=== PATIENT | male | born 1950 | race Caucasian/White ===

== ENCOUNTER 2017-12-14 14:14 | Inpatient (IN) | payer BC, MEDICARE ==
[~2017-12-14 14:14] MED LIST: ISOVUE-370 76%-LOCM 1 ML ONE
[2017-12-14] MEDS ORDERED: fentaNYL Citrate/PF 2,000 MCG in Sodium Chloride 0.9% 60 ML IV SCH (14:35)
[2017-12-14 14:36] LABS: #Eosinphils 0.1 thou/uL (0.0-0.7); #Lymphocytes 0.9 thou/uL (1.20-3.40); #Monocytes 0.9 thou/uL (0.11-0.59); #Neutrophils 12.7 thou/uL (1.40-6.50); %Basophils 0.2 % (0.0-1.0); %Monocytes 6.3 % (0.0-10.0); %Neutrophils 86.6 % (42.0-75.0); Hemoglobin 17.3 g/dL (14.0-18.0); Mean Corpuscular HGB CONC 30.2 g/dL (32.0-36.0); Mean Corpuscular Hemoglobin 27.4 pg (27.0-31.0); Mean Corpuscular Volume 90.7 fL (78.0-98.0); Mean Platelet Volume 7.6 fL (7.4-10.4); Platelet Count 296 thou/uL (130-400); RBC Distribution Width 14.4 % (11.5-14.5); Red Blood Cell (RBC) Count 6.33 mill/uL (4.70-6.10); White Blood Cell (WBC) Count 14.7 thou/uL (4.8-10.8)
[2017-12-14] MEDS ORDERED: fentaNYL Citrate/PF 2,000 MCG in Sodium Chloride 0.9% 60 ML EPIDURAL ONE (14:37)
[2017-12-14 14:41] LABS: Bilirubin Small (Negative); Blood, Urine Negative (Negative); Clarity CLOUDY (Clear); Glucose, Urine (Dipstick) Negative (Negative); Leukocyte Negative (Negative); Nitrite Negative (Negative); Protein, Urine (Dipstick) 100 mg/dL (Neg-Trace); Specific Gravity, Urine 1.024 (1.002-1.036)
[2017-12-14 14:43] LABS: Bacteria/HPF None Seen HPF (None Seen); RBC/HPF 0-3 HPF (0-3); Squamous Epithelial 0-3 HPF (0-3); WBC/HPF 0-3 HPF (0-3)
[2017-12-14 14:45] LABS: Pathc Cast-AUWi Flag 8.28 (0-2.49)
[2017-12-14 14:48] LABS: Hyaline Casts/LPF 0-3 HYALINE CAST LPF (0-3 Hyaline); Manual Microscopic Reviewed? No Path Casts Seen
[2017-12-14 14:54] LABS: Actual Bicarbonate (HCO3a) 30.9 mEq/L (22-28); Analyzer IN Cardio ER; Base Excess (BEa) 3.4 mEq/L (-2.0 to +3.0); Calcium, Ionized 1.14 mmol/L (1.12-1.30); Carboxyhemoglobin (COHb) 7.8 gm% (0.0-3.0); Hemoglobin (Hb) 17.7 g/dL (14.0-18.0); O2 Tension (PaO2) 69.8 mmHg (> 80.0); Potassium - ABG Lab 3.77 mmol/L (3.70-5.30); pH, Arterial 7.35 (7.35-7.45)
[2017-12-14 14:58] LABS: ALT (SGPT) 26 U/L (8-55); AST (SGOT) 25 U/L (5-34); Albumin 3.6 g/dL (3.4-4.8); Alkaline Phosphatase 86 U/L (40-150); Anion Gap 12 mmol/L (10-20); BUN (Urea Nitrogen) 31 mg/dL (8.4-25.7); Bilirubin, Total 0.4 mg/dL (0.2-1.2); CK (CPK) 43 U/L (30-200); Calc. Creatinine Clearance 0 mL/min (70-130); Calcium 8.9 mg/dL (7.8-10.44); Carbon Dioxide 32 mmol/L (23-31); Chloride 99 mmol/L (98-107); Estimated GFR-MDRD 47; Globulin 2.8 g/dL (2.4-3.5); Glucose 208 mg/dL (80-115); Potassium 4.2 mmol/L (3.5-5.1); Protein, Total 6.4 g/dL (5.8-8.1); Sodium 139 mmol/L (136-145)
[2017-12-14 15:01] LABS: CKMB 3.5 ng/mL (0-6.6); Troponin I 0.298 ng/mL (< 0.028)
[2017-12-14] MEDS ORDERED: Midazolam HCl 5 mg/ml Vial ONE (15:10)
--- NOTE | 2017-12-14 15:13 | RAD ---
PORTABLE SUPINE CHEST ONE VIEW: History: 67-year-old male with history of altered mental status. FINDINGS: NG tube and endotracheal tube are in position. There is bilateral vascular congestion. In addition, t here is some rotation to the left but there appears to be abnormal opacity in the left mid and lower chest with what appears to be some left sided volume loss. This pleural and parenchymal appearing abn ormal opacity in the left lower chest retrocardiac region is possibly slightly worse than a prior CT scan bench lay out technician film from 09-26-17, but it appeared very similar on that study. The right chest is stable. IMPRESSION: Some rotation to the left with some abnormal pleural and parenchymal opacity changes in the left mid and lower chest and retrocardiac region with little change, possibly slight worsening when compared t o the prior CT bench lay out technician film, 09-26-17. Bilateral vascular congestion. Cardiomegaly. Life support tubes in place. Continued short term follow up. POS: [facility]
[2017-12-14 15:21] LABS: Amphetamine Not Detected (NotDetected); Barbiturates Screen Not Detected (NotDetected); Benzodiazepine Screen Not Detected (NotDetected); Cocaine Metabolite Screen Not Detected (NotDetected); Medtox Control Line Valid? VALID (VALID); Medtox Reader # READER 1; Methadone Not Detected (NotDetected); Methamphetamine Not Detected (NotDetected); Opiate Screen Not Detected (NotDetected); Oxycodone Screen Not Detected (NotDetected); Phencyclidine (PCP) Not Detected (NotDetected); THC/Cannabinoid Screen Not Detected (NotDetected); Tricyclic Screen Not Detected (NotDetected)
[2017-12-14 15:24] LABS: Acetaminophen Less than 6.0 mcg/mL (10.0-30.0); Alcohol Less than 10 mg/dL (Less than 10); Salicylate Less than 8.0 mg/dL (15.0-30.0)
[2017-12-14 15:24] LABS: Puncture Site L.R.
--- NOTE | 2017-12-14 15:31 | CT ---
HEAD CT WITHOUT CONTRAST: Date: 12/14/17 COMPARISON: 05/03/11. HISTORY: Altered mental status. TECHNIQUE: Serial axial CT imaging at 5 mm intervals from vertex through skull base without contrast. FINDINGS: There is focal peripheral hypodensity identified within the cerebellar hemisphere on the left, stable when compared to prior imaging, evidence of prior infarction. There is mild mucosal thickening involving bilateral ethmoid air cells. There is mild mucosal thicken ing involving the posterior inferior left maxillary sinus. There is no displaced fracture or evidence of dislocation. No intracranial hemorrhage, midline shift, or mass effect is noted. There is extensi ve periventricular deep and subcortical white matter hypodensity suggesting prominent small vessel di sease. IMPRESSION: Findings suggesting prominent small vessel disease with no evidence for acute hemorrhage. If there is clinical concern for acute infarction, follow-up brain MRI suggested. POS: [facility]
--- NOTE | 2017-12-14 15:56 | CT ---
CONTRAST ENHANCED CTA CHEST: Date: 12/14/17 HISTORY: Altered mental status in this 67-year-old male. TECHNIQUE: Contrast enhanced CTA of the chest is performed. 2D and 3D reconstructed images performed on an [employer] 3D workstation. FINDINGS/IMPRESSION: The patient is intubated. A NG tube is in place. Extensive consolidation seen in the left lower lobe with volume loss. No significant evidence of pericardial effusion seen. There is a tiny left-sided pleural effusion see n. Coronary artery calcifications seen. The thoracic aorta demonstrates some mild calcifications. No evidence of filling defects seen in the pulmonary arteries to suggest pulmonary emboli. Left lower lobe consolidation compatible with pneumonia. POS: [facility]
--- NOTE | 2017-12-14 16:12 | PDOC.FPRHP ---
- History of Present Illness Chief Complaint: found down at home History of Present Illness: Mr. Mcdowell is a 67YO gentleman with a PMH significant for poorly controlled COPD, HTN, and DMII who was brought to the ED via air [facility] after being found slumped over in a chair in his home gasping for air. Per the patient 's family he had been complaining of a productive cough and had been having intermittent episodes of slurred speech for the last 3-4 days. They also reported that the patient had been experiencing diarrhea and stool incontinence during this time frame as well. He had just returned from a cruise with his father who was not experiencing any similar symptoms. Per the sister, she had spoken with the patient around 12:30 today and noted that his speech was slurred and he was not making sense. She therefore went to his home to check on him and found him slumped over in his chair with his shirt soaked with saliva and gasping for air. EMS was called and reported that the patient was satting 63 % on RA. He was given 200 of ketamine and 100 of rocuronium and immediately intubated in the field. He was also given 400mL of NS on the way to the ED. ED Course: The patient was given 2.5mg of IV versed and 750mg of IV levaquin. - Allergies/Adverse Reactions Allergies Allergy/AdvReac Type Severity Reaction Status Date / Time Penicillins Allergy Verified 12/14/17 19:36 - Home Medications Medication Instructions Recorded Confirmed Type Amitriptyline HCl 25 mg PO DAILY 12/14/17 12/14/17 History Aspirin [Ecotrin] 81 mg PO DAILY 12/14/17 12/14/17 History Carvedilol [Coreg] 12.5 mg PO DAILY 12/14/17 12/14/17 History Folic Acid [Folvite] 1 mg PO DAILY 12/14/17 12/14/17 History Glimepiride 2 mg PO QAM-WM 12/14/17 12/14/17 History Hydrochlorothiazide 12.5 mg PO DAILY 12/14/17 12/14/17 History Lisinopril 40 mg PO DAILY 12/14/17 12/14/17 History Omeprazole 20 mg PO DAILY 12/14/17 12/14/17 History hydrALAZINE [Apresoline] 10 mg PO DAILY 12/14/17 12/14/17 History predniSONE [Deltasone] 20 mg PO DAILY 12/14/17 12/14/17 History - History PMHx: DMII, COPD, BRYAN on CPAP, HTN, HLD, h/o testicular CA PSHx: ventral hernia repair, unilateral orchiectomy 2/2 h/o testicular CA FHx: Sister- DMII Father- [place] Social: Extensive tobacco history including 4ppd since age 15. No EtOH or drug use per family. Lives at home alone across the street from his father. - Review of Systems ROS unobtainable: due to endotracheal tube - Vital signs BP: 109/73 HR: 71 RR: 18 Tmax: 99.3F Pox: 98% on ventilator Wt: 111kg - Physical Exam -Constitutional: Intubated and sedated on fentanyl drip. HEENT: normocephalic and atraumatic, PERRLA, conjunctiva clear, no scleral icterus Neck: trachea midline, no LAD Heart: RRR, normal S1/S2, no edema -Heart: Distant heart sounds and pedal pulses difficult to palpate. Lungs: good air movement, other -Lungs: Expiratory wheezing and coarse breath sounds noted throughout. Abdomen: soft, bowel sounds present, no masses/distention, no hernias Musculoskeletal: normal structure -Neurological: Unable to assess 2/2 sedation other than pupillary reflexes which were equal and intact. Skin: no rash/lesions, good turgor, capillary refill <2 seconds, no jaundice Heme/Lymphatic: no unusual bruising or bleeding, no purpura, no petechia -Psychiatric: Unable to discern 2/2 sedation. FMR H&P: Results - Labs Result Diagrams: 12/14/17 14:24 12/14/17 14:24 Lab results: WBC 14.7 thou/uL (4.8-10.8) H 12/14/17 14:24 Hgb 17.3 g/dL (14.0-18.0) 12/14/17 14:24 Hct 57.4 % (42.0-52.0) H 12/14/17 14:24 MCV 90.7 fL (78.0-98.0) 12/14/17 14:24 Plt Count 296 thou/uL (130-400) 12/14/17 14:24 Neutrophils % 86.6 % (42.0-75.0) H 12/14/17 14:24 ABG pH 7.35 (7.35-7.45) 12/14/17 14:45 ABG pCO2 57.0 mmHg (35.0-45.0) H 12/14/17 14:45 ABG pO2 69.8 mmHg (> 80.0) 12/14/17 14:45 Sodium 139 mmol/L (136-145) 12/14/17 14:24 Potassium 4.2 mmol/L (3.5-5.1) 12/14/17 14:24 Chloride 99 mmol/L (98-107) 12/14/17 14:24 Carbon Dioxide 32 mmol/L (23-31) H 12/14/17 14:24 BUN 31 mg/dL (8.4-25.7) H 12/14/17 14:24 Creatinine 1.48 mg/dL (0.6-1.3) H 12/14/17 14:24 Glucose 208 mg/dL (80-115) H 12/14/17 14:24 Lactic Acid 2.0 mmol/L (0.5-2.2) 12/14/17 14:25 Calcium 8.9 mg/dL (7.8-10.44) 12/14/17 14:24 Total Bilirubin 0.4 mg/dL (0.2-1.2) 12/14/17 14:24 AST 25 U/L (5-34) 12/14/17 14:24 ALT 26 U/L (8-55) 12/14/17 14:24 Alkaline Phosphatase 86 U/L (40-150) 12/14/17 14:24 Creatine Kinase 43 U/L (30-200) 12/14/17 14:24 CK-MB (CK-2) 3.5 ng/mL (0-6.6) 12/14/17 14:24 B-Natriuretic Peptide 276.0 pg/mL (0-100) H 12/14/17 14:24 Serum Total Protein 6.4 g/dL (5.8-8.1) 12/14/17 14:24 Albumin 3.6 g/dL (3.4-4.8) 12/14/17 14:24 Urine Ketones Negative mg/dL (Negative) 12/14/17 14:33 Urine Blood Negative (Negative) 12/14/17 14:33 Urine Nitrite Negative (Negative) 12/14/17 14:33 Ur Leukocyte Esterase Negative (Negative) 12/14/17 14:33 Urine RBC 0-3 HPF (0-3) 12/14/17 14:33 Urine WBC 0-3 HPF (0-3) 12/14/17 14:33 Ur Squamous Epith Cells 0-3 HPF (0-3) 12/14/17 14:33 Urine Bacteria None Seen HPF (None Seen) 12/14/17 14:33 - Radiology Interpretation CT scan - chest Status: image reviewed by me, report reviewed by me Additional comment: LLL consolidation w/ no evidence of PTE. Chest x-ray Status: image reviewed by me, report reviewed by me Additional comment: LLL consolidation. CT scan - head Status: report reviewed by me Additional comment: prominent small vessel disease w/ no evidence of acute hemorrhage FMR H&P: A/P - Plan 67YO gentleman with a PMH significant for COPD, DMII not on insulin, HTN and HLD who was brought to the ED via [facility] after being found slumped over in his chair gasping for air. Acute hypoxic hypercapnic respiratory failure - Likely 2/2 COPD exacerbated by LLL PNA. - Patient was intubated in the field and current vent settings are as follows: SIMV-VC - rate 18, TV 500 mL, Pressure Support 10, PEEP 5, FiO2 80%. Vitals are stable at this time on these settings. Will continue with ventilatory support overnight and wean as tolerated per pulmonology's recs. - Will continue with IV levaquin 750mg Q24H and add IV cefepime Q12H for PNA. - Will start on IV steroids and VINCENT Duonebs for COPD. - Repeat ABG in the AM. Respiratory acidosis w/ concomittant metabolic alkalosis - pH of 7.35 on ABG after intubation. PCO2 still elevated at 57 & bicarb 30.9. - Likely a chronic CO2 retainer 2/2 COPD w/ chronic metabolic compensation. - Will get a repeat ABG in the AM. Sepsis 2/2 CAP - Will cotinue IV Abx as described above. - Will give 1L of LR and continue on IVMFs with LR @ 150mL/hr. - Will obtain sputum cultures. Blood cultures done in the ED. - Urine legionella and strep antigens ordered. - Will hold home BP meds for now as BPs have been low-normal range. Will resume PRN. - Will continue to monitor vitals closely and continue ventilatory support overnight and wean as recommended by pulmonology. Encephalopathy w/ dysarthria likely 2/2 hypoxia and hypercapnea - Will treat underlying PNA which likely triggered the COPD exacerbation. - Will continue with respiratory support and wean as recommended by pulm. - Will continue IV steroids and VINCENT Duonebs as well to improve ventilation. - Unlikely 2/2 an ischemia event as patient had sxs 3-4 prior to presentation and head CT was negative for any acute intracranial findings. LEXA - Likely 2/2 poor PO intake and increased demand from sepsis. - Will give 1L of LR and continue IVMFs with LR @ 150mL/hr. - Will continue to monitor with QD BMPs. Acute exacerbation of COPD - Will start on VINCENT Duonebs and IV steroids & treat likely exacerbating factor, PNA, as described above. - Will consider initiating QD inhaled meds once patient is alert and able to tolerate them. DMII - Will hold home PO meds while intubated and start on mild SSI as patient is insulin naive. - Will get ACHS accuchecks and order hypoglycemia protocol. HTN - Will hold home meds since BP has been in low NL range since admission. - Will resume as tolerated by the patient. BRYAN on CPAP - Will resume CPAP once patient is off ventilatory support. h/o GERD w/ chronic dysphagia - Will start on IV PPI and resume home meds once tolerating PO. HLD - Will initiate statin therapy once patient is able to tolerate PO. h/o testicular CA - Aware. Patient is s/p unilateral orchietomy. Significant tobacco use - Patient has a calculated 200 pack year smoking history. - Nitcotine patch ordered and will educate on cessation once extubated and alert. FMR H&P: Upper Level - Pertinent history This is a 67 y/o M with PMHx of HTN, DM2, HLD, COPD who presented by life flight. The majority of the history was obtained by his sister. She reports that she had called him and he wasn't making any sense over the phone and was slurring his speech, so she went by his house to check on him and found him unconscious, slumped over in the chair, drooling, and gasping for breath at 12: 30 pm today. She immediately called 911 and he was intubated in the field. The sister reports that he went on a cruise about a week ago and has been feeling bad since that time. He has had a cough and congestion and was given a z -sky over the phone by his PCP. His sister reports that over the past 3-4 days he had been having bowel incontinence and slurred speech as well. He is a heavy smoker with a 4ppd for 50 years smoking history. He has COPD as well as many other chronic conditions and is very non-compliant with his medications. - Pertinent findings Vitals: BP 104/72, HR 72, RR 18, Temp 98.9, O2 98% on Ventilator PE: Gen - sedated, intubated on ventilator HEENT - MMM, PERRL CV - RRR, no murmurs Resp - Coarse rales in LLL, diffuse expiratory wheezes, on ventilator Ext - cold LE bilaterally with skin changes consistent with chronic venous stasis and 1+ pitting edema in BLE to mid rivers Neuro - sedated, responsive to pain but not to commands, GCS 6. - Plan Date/Time: 12/14/17 1612 I, Mary Prater MD, PGY-2, have evaluated this patient and agree with findings/ plan as outlined by international marketing coordinator resident. Pertinent changes/additions are listed here. This is a 67 y/o M with PMHx of HTN, DM2, HLD, COPD who presented by life flight for Acute Respiratory Failure 1. Acute Hypoxic Hypercapneic Respiratory Failure - Patient presented in respiratory arrest requiring intubation in the field. ABG after arrival in the ED showed compensated Respiratory Acidosis. Patient was given ketamine and rocuronium by EMS and then was started on a fentanyl drip and given versed in the ED. Current vent settings: SIMV-VC - rate 18, TV 500 mL, Pressure Support 10 , PEEP 5, FiO2 80%. Patient's vitals are stable at this time on these vent settings. The respiratory failure is likely 2/2 LLL CAP and possible COPD exacerbation. Will admit to the ICU, continue ventilation, consult Dr. Roque with pulm, repeat ABG in the AM. 2. Sepsis 2/2 LLL Pneumonia - pt with large LLL pneumonia seen on CT. WBC 14. Will treat with levaquin and cefepime. Will give 1L LR followed by LR @ 150 s/p 400 mL bolus by EMS. Will check urine legionella and strep pneumo antigens. Will get sputum cultures and blood cultures pending. 3. Suspected COPD Exacerbation - pt with extensive smoking hx and wheezing on exam who presented in respiratory arrest. Will treat with abx as above as well as solumedrol and duonebs. 4. Elevated Troponin likely 2/2 Demand Ischemia - initial troponin 0.298. Will trend troponins. 5. LEXA - pt s/p 400 mL bolus, will give LR @ 150 and monitor. 6. COPD - treat as above 7. DM2 - Non-compliant with meds. Will check accuchecks and mild SSI. 8. HTN - BP WNL at this time. Will continue to monitor and treat prn 9. Tobacco abuse - pt with 200 pack year smoking hx. Nicoderm patch and counseling when awake VTE ppx: Lovenox Code Status: Full Attending Addendum - Attending Addendum Date/Time: 12/14/172131 I personally evaluated the patient and discussed the management with Dr. Balderrama and Josi. I agree with the History, Examination, Assessment and Plan documented above with any addition or exceptions noted below.
[2017-12-14] MEDS ORDERED: DISCONTINUE PREVIOUS NARCOTIC PAIN MEDICATIONS AND BENZODIAZEPINES FS SCH (16:45)
[2017-12-14] MEDS ORDERED: Fentanyl BOLUS 250 ML IVPB PRN (16:45)
[2017-12-14] MEDS ORDERED: Lorazepam 2 MG/ML VIAL SLOW IVP PRN (16:45)
[2017-12-14] MEDS ORDERED: Propofol BOLUS 1,000 MG/100 ML VIAL IV PRN (16:45)
[2017-12-14] MEDS ORDERED: Dextrose 5 % And 0.9 % NaCl 1,000 ML IV SCH (17:00)
[2017-12-14] MEDS ORDERED: Ventilator Sedation Protocol 1 EACH FS SCH (17:15)
[2017-12-14] MEDS ORDERED: Dextrose 5% in Water 1,000 ML IV PRN (17:35)
[2017-12-14] MEDS ORDERED: Lactated Ringer's 1,000 ML IV SCH (17:35)
[2017-12-14] MEDS ORDERED: Dextrose 50% Abboject 50 ML SYRINGE SLOW IVP PRN (17:35)
[2017-12-14] MEDS ORDERED: Cefepime 1 GM in Sodium Chloride 0.9% 100 ML IVPB SCH (18:00)
--- NOTE | 2017-12-14 18:06 | PDOC.EVN ---
Event Note - Event Note Event Note: Date/Time: 12/14/17 180 I personally evaluated the patient and discussed the management with Dr. Smith at time of admission. H&P pending. Will review when available. I agree with the History, Examination, Assessment and Plan as discussed.
[2017-12-14] MEDS: Cefepime 2 GM in Sodium Chloride 0.9% 100 ML IVPB SCH (18:10)
[2017-12-14] MEDS: Nicotine 21 MG PATCH TD SCH (18:11)
[2017-12-14] MEDS: Lactated Ringer's 1,000 ML IV SCH ×2 (18:11→23:17)
[2017-12-14] MEDS: HumaLOG 300 UNITS/3 ML VIAL SC PRN (18:11)
[2017-12-14 18:12] LABS: Legionella Urinary Ag Negative (Negative); Strep pneumo Urine Ag NEGATIVE (NEGATIVE)
[2017-12-14 19:32] LABS: Troponin I 0.289 ng/mL (< 0.028)
[2017-12-14] MEDS: Enoxaparin Sodium 40 MG/0.4 ML SYRINGE SC SCH (20:28)
[2017-12-14] MEDS: Propofol 1,000 MG/100 ML VIAL IV PRN (23:25)
[2017-12-15] MEDS ORDERED: fentaNYL Citrate/PF 2,000 MCG in Sodium Chloride 0.9% 60 ML EPIDURAL ONE (03:26)
[2017-12-15 05:00] LABS: #Eosinphils 0.1 thou/uL (0.0-0.7); #Lymphocytes 1.1 thou/uL (1.20-3.40); #Monocytes 0.5 thou/uL (0.11-0.59); #Neutrophils 12.4 thou/uL (1.40-6.50); %Eosinophils 0.6 % (0.0-10.0); %Lymphocytes 7.7 % (21.0-51.0); %Monocytes 3.2 % (0.0-10.0); %Neutrophils 88.5 % (42.0-75.0); Hemoglobin 16.4 g/dL (14.0-18.0); Mean Corpuscular HGB CONC 32.2 g/dL (32.0-36.0); Mean Corpuscular Hemoglobin 28.9 pg (27.0-31.0); Mean Corpuscular Volume 89.7 fL (78.0-98.0); Mean Platelet Volume 7.6 fL (7.4-10.4); Platelet Count 256 thou/uL (130-400); RBC Distribution Width 14.4 % (11.5-14.5); Red Blood Cell (RBC) Count 5.68 mill/uL (4.70-6.10)
[2017-12-15 05:25] LABS: Anion Gap 13 mmol/L (10-20); BUN (Urea Nitrogen) 31 mg/dL (8.4-25.7); Calc. Creatinine Clearance 85 mL/min (70-130); Calcium 8.8 mg/dL (7.8-10.44); Carbon Dioxide 28 mmol/L (23-31); Chloride 101 mmol/L (98-107); Estimated GFR-MDRD 56; Glucose 133 mg/dL (80-115); Potassium 4.1 mmol/L (3.5-5.1); Sodium 138 mmol/L (136-145); Troponin I 0.188 ng/mL (< 0.028)
[2017-12-15] MEDS: Lactated Ringer's 1,000 ML IV SCH ×4 (07:02→22:49)
[2017-12-15 07:09] LABS: Actual Bicarbonate (HCO3a) 31.4 mEq/L (22-28); CO2 Tension 52.3 mmHg (35.0-45.0); Carboxyhemoglobin (COHb) 1.9 gm% (0.0-3.0); Hemoglobin (Hb) 16.4 g/dL (14.0-18.0); O2 Tension (PaO2) 101.8 mmHg (> 80.0)
[2017-12-15] MEDS: Cefepime 2 GM in Sodium Chloride 0.9% 100 ML IVPB SCH (07:09)
[2017-12-15 07:14] LABS: Puncture Site RR
[2017-12-15 07:15] LABS: ALV-art Gradient 224.975 (0-20)
--- NOTE | 2017-12-15 07:24 | PDOC.FM ---
- Subjective Subjective: 67 yo bárbara admitted for acute hypoxic hypercapnic respiratory failure and sepsis 2/2 LLL pna/copd exacerbation. He did well overnight. He is still intubated and sedated this am but responds to commands. GCS 10 - Objective MAR Reviewed: Yes Vital Signs & Weight: Vital Signs (12 hours) Temp Pulse Resp Pulse Ox 12/15/17 07:00 98.6 F 12/15/17 02:22 70 18 99 12/15/17 00:00 99.0 F 21 H 97 12/14/17 22:33 71 12/14/17 22:32 73 18 100 12/14/17 20:00 99.5 F 96 Weight Admit Weight 107.5 kg Weight 107.5 kg Most Recent Monitor Data Heart Rate from ECG 79 NIBP 141/83 NIBP BP-Mean 102 Respiration from ECG 18 SpO2 93 I&O: 12/14/17 12/15/17 12/16/17 06:59 06:59 06:59 Intake Total 1348.2 Output Total 685 20 Balance 663.2 -20 Result Diagrams: 12/15/17 04:36 12/15/17 04:36 <Lydia Levy - Last Filed: 12/15/17 09:57> - Objective Vital Signs & Weight: Vital Signs (12 hours) Temp Pulse Resp BP Pulse Ox 12/15/17 10:52 90 12/15/17 08:00 98.6 F 12/15/17 07:33 18 95 12/15/17 07:23 87 156/101 H 12/15/17 07:00 98.6 F 12/15/17 02:22 70 18 99 12/15/17 00:00 99.0 F 21 H 97 Weight Admit Weight 107.5 kg Weight 107.5 kg Most Recent Monitor Data Heart Rate from ECG 82 NIBP 169/95 NIBP BP-Mean 119 Respiration from ECG 22 SpO2 91 I&O: 12/14/17 12/15/17 12/16/17 06:59 06:59 06:59 Intake Total 1348.2 500 Output Total 685 220 Balance 663.2 280 Result Diagrams: 12/15/17 04:36 12/15/17 04:36 <José Miguel Franco - Last Filed: 12/15/17 12:44> Phys Exam - Physical Examination Constitutional: NAD intubated and sedated SIMV volume control with 40% FiO2 HEENT: PERRLA coarse breath sounds Cardiovascular: RRR, no significant murmur Gastrointestinal: soft, non-tender, no distention Musculoskeletal: no edema, pulses present GCS 10 Skin: no rash <Lydia Levy - Last Filed: 12/15/17 09:57> Dx/Plan (1) Acute respiratory failure with hypoxia and hypercapnia Code(s): J96.01 - ACUTE RESPIRATORY FAILURE WITH HYPOXIA; J96.02 - ACUTE RESPIRATORY FAILURE WITH HYPERCAPNIA Status: Acute (2) Sepsis Code(s): A41.9 - SEPSIS, UNSPECIFIED ORGANISM Status: Acute (3) Left lower lobe pneumonia Code(s): J18.1 - LOBAR PNEUMONIA, UNSPECIFIED ORGANISM Status: Acute (4) Diabetes type 2, controlled Code(s): E11.9 - TYPE 2 DIABETES MELLITUS WITHOUT COMPLICATIONS Status: Acute (5) HTN (hypertension) Code(s): I10 - ESSENTIAL (PRIMARY) HYPERTENSION Status: Acute (6) LEXA (acute kidney injury) Code(s): N17.9 - ACUTE KIDNEY FAILURE, UNSPECIFIED Status: Acute (7) COPD exacerbation Code(s): J44.1 - CHRONIC OBSTRUCTIVE PULMONARY DISEASE W (ACUTE) EXACERBATION Status: Acute (8) Stage 1 decubitus ulcer Code(s): L89.91 - PRESSURE ULCER OF UNSPECIFIED SITE, STAGE 1 Status: Acute (9) PAD (peripheral artery disease) Code(s): I73.9 - PERIPHERAL VASCULAR DISEASE, UNSPECIFIED Status: Acute - Plan Plan: 67 YO gentleman with a PMH significant for COPD, DMII not on insulin, HTN and HLD who presents intubated/sedated admitted for Acute hypoxic hypercapnic respiratory failure 2/2 Sepsis from CAP. Acute hypoxic hypercapnic respiratory failure - Likely 2/2 COPD exacerbated by LLL PNA. - Patient was intubated in the field and current vent settings are as follows: SIMV-VC - rate 18, TV 500 mL, Pressure Support 10, PEEP 5, FiO2 80%. Vitals are stable at this time on these settings. -Will continue with ventilatory support overnight and wean as tolerated per pulmonology's recs. - Will continue with IV levaquin 750mg Q24H and add IV cefepime Q12H for PNA. - Continue IV steroids and VINCENT Duonebs for COPD. - Repeat ABG showed hypercapnia Respiratory acidosis w/ concomittant metabolic alkalosis - pH of 7.35 on ABG after intubation. PCO2 still elevated at 57 & bicarb 30.9. - Likely a chronic CO2 retainer 2/2 COPD w/ chronic metabolic compensation. - Repeat ABG in the AM showed hypercapnia Sepsis 2/2 CAP - Will cotinue IV Abx as described above and add vanc since sputum showed gram + cocci in clusters - IVMFs with LR @ 150mL/hr. - Will obtain sputum cultures. Blood cultures done in the ED and NGTD - Urine legionella and strep antigens negative - Will hold home BP meds for now as BPs have been low-normal range. Will resume PRN. - Will continue to monitor vitals closely and continue ventilatory support overnight and wean as recommended by pulmonology. - Will start tube feeds per recs from Dr. Roque Encephalopathy w/ dysarthria likely 2/2 hypoxia and hypercapnea - Will treat underlying PNA which likely triggered the COPD exacerbation. - Will continue with respiratory support and wean as recommended by pulm. - Will continue IV steroids and VINCENT Duonebs as well to improve ventilation. - Unlikely 2/2 an ischemia event as patient had sxs 3-4 prior to presentation and head CT was negative for any acute intracranial findings. LEXA - Urine sodium and urine osms - Likely 2/2 poor PO intake and increased demand from sepsis. - Continue IVMFs with LR @ 150mL/hr. - Will continue to monitor with QD BMPs. Acute exacerbation of COPD - Will continue VINCENT Duonebs and IV steroids & treat likely exacerbating factor, PNA, as described above. - Will consider initiating QD inhaled meds once patient is alert and able to tolerate them. DMII - Will hold home PO meds while intubated and start on mild SSI as patient is insulin naive. - Will get ACHS accuchecks and order hypoglycemia protocol. HTN - Will hold home meds since BP has been in low NL range since admission. - Will resume as tolerated by the patient. BRYAN on CPAP - Will resume CPAP once patient is off ventilatory support. h/o GERD w/ chronic dysphagia - Will start on IV PPI and resume home meds once tolerating PO. HLD - Will initiate statin therapy once patient is able to tolerate PO. h/o testicular CA - Aware. Patient is s/p unilateral orchietomy. Significant tobacco use - Patient has a calculated 200 pack year smoking history. - Nitcotine patch ordered and will educate on cessation once extubated and alert. <Lydia Levy - Last Filed: 12/15/17 09:57> Attending Addendum - Attending Addendum Date/Time: 12/15/17 2842 I personally evaluated the patient and discussed the management with Dr. [] I agree with the History, Examination, Assessment and Plan documented above with any addition or exceptions noted below. <José Miguel Franco - Last Filed: 12/15/17 12:44>
[2017-12-15] MEDS: Pantoprazole 40 MG VIAL IVP SCH (08:19)
[2017-12-15] MEDS: Propofol 1,000 MG/100 ML VIAL IV PRN ×4 (08:48→22:49)
--- NOTE | 2017-12-15 08:49 | CON ---
DATE OF CONSULTATION: 12/14/2017 HISTORY OF PRESENT ILLNESS: Jeremias is a 67-year-old gentleman, history is obtained entirely from talking to the patient's sister at the bedside. There is a son at the bedside too along with father, they live in [place], somewhere near [place]. They see Dr. Vines. Previously, they were seeing at clinic in [place]. They apparently have moved. He sees a doctor from time to time, but is extremely noncompliant, smokes up to 3 packs a day. He has a girlfriend, who works in [place]. Apparently, sister was notified that patient was having some difficulty breathing. When she arrived, he was confused , slurred speech, drooling clearly in distress. Sitting in the chair. Ambulance was called at 911. His sats were low. He is intubated and brought to the hospital over here. Additional information is that he sees a doctor very frequently. He has got multiple medical problems, but apparently unable to give any information to his sisters. Son apparently also unaware of any problems. PAST MEDICAL HISTORY: COPD, apparently testicular cancer, previous endoscopy done with some lesion in the esophagus, unclear what it was, and hyperlipidemia. PAST SURGICAL HISTORY: Testicular cancer, some kind of abdominal surgery with a mesh. He recently had an antibiotic called in and some steroids by his doctor. ALLERGIES: PENICILLIN. CURRENT MEDICATIONS: Aspirin, folic acid, lisinopril, hydrochlorothiazide. 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 REVIEW OF SYSTEMS: Unobtainable, intubated on the vent, sedated. PHYSICAL EXAMINATION: VITAL SIGNS: Pulse is 100, blood pressure 110\60, sats 95%. His vent was adjusted. HEENT: Pupils are equal. CHEST: Decreased breath sounds, no wheezing, no crackles. CARDIAC: Normal S1, S2, no gallops. ABDOMEN: Soft. Nondistended. LABORATORY DATA AND IMAGING DATA: PO2 of 69, pCO2 of 57, pH 7.35, 60%, 5 of PEEP. X-ray shows left-sided infiltrate and a big rotation. CAT scan shows extensive left lower lobe pneumonia. White count 14,000, hemoglobin and hematocrit 17 and 57. Troponin is normal. CT chest shows no masses or pneumonia. No PE. Creatinine 1.48. BNP 276. IMPRESSION: 1. Acute on chronic respiratory failure. 2. Left pneumonia. 3. History of testicular cancer. 4. Ongoing tobacco abuse, renal failure. PLAN: Antibiotics have been initiated, neb treatments, supportive care, steroids. Continue vent, wean when stable. Nutrition in the next 24-48 hours. This is a critical care time of 45 minutes. MTDD
[2017-12-15] MEDS ORDERED: VANCOMYCIN IVPB PRN (08:57)
[2017-12-15] MEDS ORDERED: Vancomycin HCl 1 GM in Sodium Chloride 0.9% 250 ML 250 ML IVPB SCH (09:00)
--- NOTE | 2017-12-15 09:25 | PRG ---
DATE OF SERVICE: 12/15/2017 SUBJECTIVE: This morning, intubated on the vent, more responsive, nods appropriately. OBJECTIVE: VITAL SIGNS: His pulse is 53, blood pressure 140/80, sats are 90%, respiration 18. I's and O's have been good at 1348 in and 685 out. CHEST: Reveals bilateral rhonchi and crackles. CARDIAC: Normal S1, S2. No gallops. ABDOMEN: Soft, no masses. LABORATORY DATA: Creatinine 1.28, pO2 is 101, . White count 14,000, H&H is 16 and 51. IMPRESSION: 1. Left lung pneumonia. 2. Chronic obstructive pulmonary disease. 3. Severe deconditioning. 4. Diabetes. 5. Renal failure. PLAN: Continue steroids, neb treatments, antibiotics. We will follow. We will start nutrition. One-half hour critical care time.
[2017-12-15] MEDS: HumaLOG 300 UNITS/3 ML VIAL SC PRN (10:35)
[2017-12-15] MEDS: Nicotine 21 MG PATCH TD SCH (12:45)
[2017-12-15] MEDS: Clindamycin/D5W 600 MG in Premix Bag 1 BAG IVPB SCH ×2 (17:03→23:24)
[2017-12-15] MEDS: Enoxaparin Sodium 40 MG/0.4 ML SYRINGE SC SCH (20:19)
[2017-12-16] MEDS: HumaLOG 300 UNITS/3 ML VIAL SC PRN ×4 (01:30→18:22)
[2017-12-16] MEDS: Propofol 1,000 MG/100 ML VIAL IV PRN ×5 (03:40→22:53)
[2017-12-16 03:54] LABS: #Eosinphils 0.2 thou/uL (0.0-0.7); #Lymphocytes 0.7 thou/uL (1.20-3.40); #Monocytes 0.9 thou/uL (0.11-0.59); #Neutrophils 13.4 thou/uL (1.40-6.50); %Eosinophils 1.1 % (0.0-10.0); %Lymphocytes 4.5 % (21.0-51.0); %Monocytes 5.9 % (0.0-10.0); %Neutrophils 88.6 % (42.0-75.0); Hemoglobin 15.3 g/dL (14.0-18.0); Mean Corpuscular HGB CONC 32.1 g/dL (32.0-36.0); Mean Corpuscular Hemoglobin 29.3 pg (27.0-31.0); Mean Corpuscular Volume 91.2 fL (78.0-98.0); Mean Platelet Volume 7.4 fL (7.4-10.4); Platelet Count 236 thou/uL (130-400); Red Blood Cell (RBC) Count 5.22 mill/uL (4.70-6.10); White Blood Cell (WBC) Count 15.1 thou/uL (4.8-10.8)
[2017-12-16 04:20] LABS: Anion Gap 12 mmol/L (10-20); BUN (Urea Nitrogen) 33 mg/dL (8.4-25.7); Calc. Creatinine Clearance 80 mL/min (70-130); Calcium 8.7 mg/dL (7.8-10.44); Carbon Dioxide 32 mmol/L (23-31); Chloride 101 mmol/L (98-107); Estimated GFR-MDRD 52; Glucose 162 mg/dL (80-115); Potassium 4.5 mmol/L (3.5-5.1); Sodium 140 mmol/L (136-145)
[2017-12-16] MEDS: Clindamycin/D5W 600 MG in Premix Bag 1 BAG IVPB SCH ×4 (05:16→22:53)
[2017-12-16] MEDS: Lactated Ringer's 1,000 ML IV SCH (05:22)
--- NOTE | 2017-12-16 06:17 | PDOC.FM ---
- Subjective Subjective: 67 yo bárbara admitted for acute hypoxic hypercapnic respiratory failure and sepsis 2/2 LLL pna/copd exacerbation. O/N: He did well overnight. He is still intubated and sedated this am but responds to commands. GCS 11 - Objective Vital Signs & Weight: Vital Signs (12 hours) Temp Pulse Resp Pulse Ox 12/16/17 04:00 98.1 F 18 12/16/17 02:03 77 14 93 L 12/16/17 02:00 17 12/16/17 00:00 98.6 F 10 L 12/15/17 22:41 84 12/15/17 22:40 83 15 92 L 12/15/17 22:00 16 12/15/17 20:00 98.7 F 14 100 12/15/17 18:32 81 12/15/17 18:30 80 14 92 L Weight Admit Weight 107.5 kg Weight 107.5 kg Most Recent Monitor Data Heart Rate from ECG 83 NIBP 155/85 NIBP BP-Mean 108 Respiration from ECG 20 SpO2 93 I&O: 12/14/17 12/15/17 12/16/17 06:59 06:59 06:59 Intake Total 1348.2 4139 Output Total 685 1687 Balance 663.2 2452 Result Diagrams: 12/16/17 03:35 12/16/17 03:35 <Lydia Levy - Last Filed: 12/16/17 10:45> - Objective Vital Signs & Weight: Vital Signs (12 hours) Temp Pulse Resp BP Pulse Ox 12/16/17 10:42 73 151/77 H 12/16/17 10:00 14 12/16/17 08:00 99.1 F 15 12/16/17 07:07 79 149/77 H 12/16/17 07:03 74 11 L 93 L 12/16/17 06:00 15 12/16/17 04:00 98.1 F 18 12/16/17 02:03 77 14 93 L 12/16/17 02:00 17 12/16/17 00:00 98.6 F 10 L Weight Admit Weight 107.5 kg Weight 107.5 kg Most Recent Monitor Data Heart Rate from ECG 77 NIBP 151/77 NIBP BP-Mean 101 Respiration from ECG 15 SpO2 91 I&O: 12/15/17 12/16/1718 06:59 06:59 06:59 Intake Total 1348.2 4139 30 Output Total 685 1812 290 Balance 663.2 2327 -260 Result Diagrams: 12/16/17 03:35 12/16/17 03:35 <Rigoberto Delatorre - Last Filed: 12/16/17 10:52> Phys Exam - Physical Examination Constitutional: NAD HEENT: PERRLA Respiratory: no wheezing, no rales, clear to auscultation bilateral Cardiovascular: RRR, no significant murmur Gastrointestinal: soft, non-tender, no distention hypoactive bowel sounds Musculoskeletal: no edema warm b/l lower extremities Skin: no rash, normal turgor, cap refill <2 seconds <Lydia Levy - Last Filed: 12/16/17 10:45> Dx/Plan (1) Acute respiratory failure with hypoxia and hypercapnia Code(s): J96.01 - ACUTE RESPIRATORY FAILURE WITH HYPOXIA; J96.02 - ACUTE RESPIRATORY FAILURE WITH HYPERCAPNIA Status: Acute (2) Sepsis Code(s): A41.9 - SEPSIS, UNSPECIFIED ORGANISM Status: Acute (3) Left lower lobe pneumonia Code(s): J18.1 - LOBAR PNEUMONIA, UNSPECIFIED ORGANISM Status: Acute (4) Diabetes type 2, controlled Code(s): E11.9 - TYPE 2 DIABETES MELLITUS WITHOUT COMPLICATIONS Status: Acute (5) HTN (hypertension) Code(s): I10 - ESSENTIAL (PRIMARY) HYPERTENSION Status: Acute (6) LEXA (acute kidney injury) Code(s): N17.9 - ACUTE KIDNEY FAILURE, UNSPECIFIED Status: Acute (7) COPD exacerbation Code(s): J44.1 - CHRONIC OBSTRUCTIVE PULMONARY DISEASE W (ACUTE) EXACERBATION Status: Acute (8) Stage 1 decubitus ulcer Code(s): L89.91 - PRESSURE ULCER OF UNSPECIFIED SITE, STAGE 1 Status: Acute (9) PAD (peripheral artery disease) Code(s): I73.9 - PERIPHERAL VASCULAR DISEASE, UNSPECIFIED Status: Acute - Plan Plan: 67 YO gentleman with a PMH significant for COPD, DMII not on insulin, HTN and HLD who presents intubated/sedated admitted for Acute hypoxic hypercapnic respiratory failure 2/2 Sepsis from CAP. Acute hypoxic hypercapnic respiratory failure - Likely 2/2 COPD exacerbated by LLL PNA. - Patient was intubated in the field - Will follow up with pulm recs regarding the vent - Will continue with IV levaquin, clindamicin, vanc - Continue IV steroids and VINCENT Duonebs for COPD. Sepsis 2/2 CAP - Levaquin for CAP coverage, Clinda for anaerobes, Van for gram + cocci in clusters - added vanc since sputum showed gram + cocci in clusters - IVMFs with LR @ 150mL/hr. - Blood cultures done in the ED and NGTD - Urine legionella and strep antigens negative - Will hold home BP meds for now as BPs have been low-normal range. Will resume PRN. - Will continue tube feeds per recs from Dr. Roque Encephalopathy w/ dysarthria likely 2/2 hypoxia and hypercapnea - Will treat underlying PNA which likely triggered the COPD exacerbation. - Will conside extubation based on pulm recommendations. - Will continue IV steroids and VNICENT Duonebs as well to improve ventilation. - Unlikely 2/2 an ischemia event as patient had sxs 3-4 prior to presentation and head CT was negative for any acute intracranial findings. LEXA - Likely 2/2 poor PO intake and increased demand from sepsis. - Decrased LR to 120mL/hr. - Will continue to monitor with QD BMPs. -Net +2.4L; no s/s of volume overload on physical exam, will continue to monitor Acute exacerbation of COPD - Will continue VINCENT Duonebs and IV steroids & treat likely exacerbating factor, PNA, as described above. - Will consider initiating QD inhaled meds once patient is alert and able to tolerate them. - Respiratory acidosis w/ concomittant metabolic alkalosis DMII - mild SSI as patient is insulin naive. - ACHS accuchecks and order hypoglycemia protocol. HTN - Will hold home meds since BP has been in low NL range since admission. - Will resume as tolerated by the patient. BRYAN on CPAP - Will resume CPAP once patient is off ventilatory support. h/o GERD w/ chronic dysphagia - Will start on IV PPI and resume home meds once tolerating PO. HLD - Will initiate statin therapy once patient is able to tolerate PO. h/o testicular CA - Aware. Patient is s/p unilateral orchietomy. Significant tobacco use - Patient has a calculated 200 pack year smoking history. - Nitcotine patch ordered and will educate on cessation once extubated and alert. <Lydia Levy - Last Filed: 12/16/17 10:45> Attending Addendum - Attending Addendum Date/Time: 12/16/17 1049 I personally evaluated the patient and discussed the management with Dr. Francisco Boles. I agree with the History, Examination, Assessment and Plan documented above with any addition or exceptions noted below. Patient stable this morning. WBC continues to be elevated likely 2/2 steroids and infection. Afebrile. Renal function stable. Continues on tube feeds. Continue broad spectrum abx and respiratory support as needed. Pulm on board. Will need to watch I/O to ensure not getting overloaded over the coming days. <Rigoberto Delatorre - Last Filed: 12/16/17 10:52>
[2017-12-16] MEDS ORDERED: Lactated Ringer's 1,000 ML IV SCH (06:30)
[2017-12-16 07:39] LABS: Actual Bicarbonate (HCO3a) 30.9 mEq/L (22-28); Base Excess (BEa) 2.4 mEq/L (-2.0 to +3.0); Carboxyhemoglobin (COHb) 1.3 gm% (0.0-3.0); Hemoglobin (Hb) 16.4 g/dL (14.0-18.0); O2 Tension (PaO2) 79.8 mmHg (> 80.0); pH, Arterial 7.31 (7.35-7.45)
[2017-12-16 07:45] LABS: ALV-art Gradient 197.575 (0-20); CO2 Tension 63.3 mmHg (35.0-45.0); Puncture Site RRA
[2017-12-16] MEDS: Pantoprazole 40 MG VIAL IVP SCH (08:29)
--- NOTE | 2017-12-16 09:27 | PRG ---
DATE OF SERVICE: 12/16/2017 Thirty-five minutes critical care time. SUBJECTIVE: The patient remains intubated on mechanical ventilation. He will wake up and follow com mands. PHYSICAL EXAMINATION: VITAL SIGNS: His temperature is 98.1, pulse 80, blood pressure 153/80, O2 sat 93%. A 24-hour intake 4139, output 1812. HEENT EXAM: Unremarkable. NECK: No JVD. LUNGS: Poor air movement bilaterally. CARDIOVASCULAR: S1 and S2 regular without audible murmur. ABDOMEN: Soft and nontender. EXTREMITIES: Edematous throughout. LABORATORY DATA: PH 7.31, pCO2 of 63, pO2 of 70 on SIMV rate 10, tidal volume 500, PEEP 8, pressure support 15, FiO2 50%. White blood cell count 15.1, hematocrit 47.6, platelet count 236. Sodium 140, potassium 4.5, chloride 101, CO2 of 32, BUN 33, creatinine 1.3, glucose 162. ASSESSMENT: 1. Acute respiratory failure, requiring mechanical ventilation. 2. Pneumonia. 3. Beginning to get somewhat fluid overloaded. 4. Severe deconditioning. 5. Diabetes. 6. Acute renal insufficiency. PLAN: I will go ahead and stop his lactated Ringer's. I have switched him over to pressure control ventilation, because I think he is wanting more tidal volume than we are actually giving him. Contin ue the steroids, antibiotics, and nebulization treatments. He is not weanable at this time.
--- NOTE | 2017-12-16 09:41 | RAD ---
PORTABLE CHEST: Date: 12/16/17 HISTORY: Ventilator and CCU follow-up. COMPARISON: 12/14/17. FINDINGS: Cardiomegaly. Left effusion and left basilar atelectasis. Mild vascular congestion. Congestive change s appear slightly improved when compared to 12/14/17. POS: [facility]
[2017-12-16 11:20] LABS: Osmolality, Urine 547 mOsm/kg (300-900)
[2017-12-16 11:25] LABS: Creatinine, Urine 71.51 mg/dL (63-166); Sodium, Urine Less than 20 mmol/L (Not Available)
[2017-12-16] MEDS: Nicotine 21 MG PATCH TD SCH (17:10)
[2017-12-16] MEDS: Enoxaparin Sodium 40 MG/0.4 ML SYRINGE SC SCH (21:11)
[2017-12-17] MEDS: hydrALAZINE 20 MG/ML VIAL SLOW IVP PRN ×4 (03:37→16:30)
[2017-12-17] MEDS: Propofol 1,000 MG/100 ML VIAL IV PRN ×5 (03:40→20:35)
[2017-12-17 04:46] LABS: #Eosinphils 0.1 thou/uL (0.0-0.7); #Lymphocytes 0.5 thou/uL (1.20-3.40); #Monocytes 0.7 thou/uL (0.11-0.59); #Neutrophils 11.9 thou/uL (1.40-6.50); %Eosinophils 0.7 % (0.0-10.0); %Lymphocytes 4.1 % (21.0-51.0); %Monocytes 5.5 % (0.0-10.0); %Neutrophils 89.7 % (42.0-75.0); Hemoglobin 16.9 g/dL (14.0-18.0); Mean Corpuscular HGB CONC 32.6 g/dL (32.0-36.0); Mean Corpuscular Hemoglobin 29.6 pg (27.0-31.0); Mean Corpuscular Volume 90.6 fL (78.0-98.0); Mean Platelet Volume 7.8 fL (7.4-10.4); Platelet Count 228 thou/uL (130-400); RBC Distribution Width 14.3 % (11.5-14.5); White Blood Cell (WBC) Count 13.2 thou/uL (4.8-10.8)
[2017-12-17 05:17] LABS: Anion Gap 12 mmol/L (10-20); BUN (Urea Nitrogen) 37 mg/dL (8.4-25.7); Calc. Creatinine Clearance 89 mL/min (70-130); Calcium 8.9 mg/dL (7.8-10.44); Carbon Dioxide 33 mmol/L (23-31); Chloride 101 mmol/L (98-107); Estimated GFR-MDRD 59; Glucose 163 mg/dL (80-115); Potassium 4.5 mmol/L (3.5-5.1); Sodium 141 mmol/L (136-145)
[2017-12-17] MEDS: Clindamycin/D5W 600 MG in Premix Bag 1 BAG IVPB SCH ×3 (06:25→17:50)
--- NOTE | 2017-12-17 06:32 | PDOC.FM ---
- Subjective Subjective: 67 yoblanco granger admitted for acute hypoxic hypercapnic respiratory failure and sepsis 2/2 LLL pna/copd exacerbation. O/N: He was agitated this morning. GCS11. Responds to commands. - Objective MAR Reviewed: Yes Vital Signs & Weight: Vital Signs (12 hours) Temp Pulse Resp BP Pulse Ox 12/17/17 04:00 24 H 12/17/17 03:37 90 203/107 H 12/17/17 02:58 84 16 92 L 12/17/17 02:00 18 12/17/17 00:00 14 12/16/17 22:07 84 17 94 L 12/16/17 22:00 14 12/16/17 19:00 98.6 F 14 95 12/16/17 18:37 69 14 94 L Weight Admit Weight 107.5 kg Weight 107.5 kg Most Recent Monitor Data Heart Rate from ECG 97 NIBP 155/104 NIBP BP-Mean 121 Respiration from ECG 20 SpO2 93 I&O: 12/15/17 12/16/17 12/17/17 06:59 06:59 06:59 Intake Total 1348.2 4139 1344.2 Output Total 685 1812 1805 Balance 663.2 2327 -460.8 Result Diagrams: 12/17/17 03:49 12/17/17 03:49 <Lydia Levy - Last Filed: 12/17/17 09:42> - Objective Vital Signs & Weight: Vital Signs (12 hours) Pulse Resp BP Pulse Ox 12/17/17 08:47 151/84 H 12/17/17 08:30 203/107 H 12/17/17 08:00 17 12/17/17 06:00 24 H 12/17/17 04:00 24 H 12/17/17 03:37 90 203/107 H 12/17/17 02:58 84 16 92 L 12/17/17 02:00 18 12/17/17 00:00 14 Weight Admit Weight 107.5 kg Weight 107.5 kg Most Recent Monitor Data Heart Rate from ECG 78 NIBP 183/94 NIBP BP-Mean 123 Respiration from ECG 13 SpO2 93 I&O: 12/16/17 12/17/17 12/18/17 06:59 06:59 06:59 Intake Total 4139 2175.2 150 Output Total 1812 1930 270 Balance 2327 245.2 -120 Result Diagrams: 12/17/17 03:49 12/17/17 03:49 <Rigoberto Delatorre - Last Filed: 12/17/17 10:09> Phys Exam - Physical Examination agitated; awake and alert HEENT: PERRLA, moist MMs Respiratory: no wheezing, no rales, clear to auscultation bilateral Cardiovascular: RRR, no significant murmur Gastrointestinal: soft, non-tender, no distention Musculoskeletal: no edema Skin: no rash, normal turgor <Lydia Levy - Last Filed: 12/17/17 09:42> Dx/Plan (1) Acute respiratory failure with hypoxia and hypercapnia Code(s): J96.01 - ACUTE RESPIRATORY FAILURE WITH HYPOXIA; J96.02 - ACUTE RESPIRATORY FAILURE WITH HYPERCAPNIA Status: Acute (2) Sepsis Code(s): A41.9 - SEPSIS, UNSPECIFIED ORGANISM Status: Acute (3) Left lower lobe pneumonia Code(s): J18.1 - LOBAR PNEUMONIA, UNSPECIFIED ORGANISM Status: Acute (4) Diabetes type 2, controlled Code(s): E11.9 - TYPE 2 DIABETES MELLITUS WITHOUT COMPLICATIONS Status: Acute (5) HTN (hypertension) Code(s): I10 - ESSENTIAL (PRIMARY) HYPERTENSION Status: Acute (6) LEXA (acute kidney injury) Code(s): N17.9 - ACUTE KIDNEY FAILURE, UNSPECIFIED Status: Acute (7) COPD exacerbation Code(s): J44.1 - CHRONIC OBSTRUCTIVE PULMONARY DISEASE W (ACUTE) EXACERBATION Status: Acute (8) Stage 1 decubitus ulcer Code(s): L89.91 - PRESSURE ULCER OF UNSPECIFIED SITE, STAGE 1 Status: Acute (9) PAD (peripheral artery disease) Code(s): I73.9 - PERIPHERAL VASCULAR DISEASE, UNSPECIFIED Status: Acute - Plan Plan: 67 YO gentleman with a PMH significant for COPD, DMII not on insulin, HTN and HLD who presents intubated/sedated admitted for Acute hypoxic hypercapnic respiratory failure 2/2 Sepsis from CAP. Acute hypoxic hypercapnic respiratory failure - SIMV pressure PC, PS 15, Peep 8 FiO2 45% - Will continue with IV levaquin, clindamicin, vanc - Continue IV steroids and VINCENT Duonebs for COPD. - Propofol drip - Ativan 1mg q2h prn anxiety/agitation Sepsis 2/2 CAP - Levaquin for CAP coverage, Clinda for anaerobes, Van for gram + cocci in clusters - added vanc since sputum showed gram + cocci in clusters - Stop IV fluids - Blood cultures done in the ED and NGTD - Urine legionella and strep antigens negative - Restart Lisinopril and carvedilol (home meds) - Will continue tube feeds Encephalopathy w/ dysarthria likely 2/2 hypoxia and hypercapnea - Will treat underlying PNA which likely triggered the COPD exacerbation. - Will continue IV steroids and VINCENT Duonebs as well to improve ventilation. - Unlikely 2/2 an ischemia event as patient had sxs 3-4 prior to presentation and head CT was negative for any acute intracranial findings. LEXA - Likely 2/2 poor PO intake and increased demand from sepsis. - Decrased LR to 120mL/hr. - Will continue to monitor with QD BMPs. - Net -460L; no s/s of volume overload on physical exam, will continue to monitor - Adequate UOP 20mg IV Lasix Acute exacerbation of COPD - Will continue VINCENT Duonebs and IV steroids & treat likely exacerbating factor, PNA, as described above. - Will consider initiating QD inhaled meds once patient is alert and able to tolerate them. - Respiratory acidosis w/ concomittant metabolic alkalosis DMII - mild SSI as patient is insulin naive. - ACHS accuchecks and order hypoglycemia protocol. HTN - Will resume as tolerated by the patient. BRYAN on CPAP - Will resume CPAP once patient is off ventilatory support. h/o GERD w/ chronic dysphagia - Continue PPI HLD - Will initiate statin therapy once patient is able to tolerate PO. h/o testicular CA - Aware. Patient is s/p unilateral orchietomy. Significant tobacco use - Patient has a calculated 200 pack year smoking history. - Nitcotine patch ordered and will educate on cessation once extubated and alert. <Lydia Levy - Last Filed: 12/17/17 09:42> Attending Addendum - Attending Addendum Date/Time: 12/17/17 1008 I personally evaluated the patient and discussed the management with Dr. Francisco [place]isehee. I agree with the History, Examination, Assessment and Plan documented above with any addition or exceptions noted below. Patient stable, continues to require significant pressure support. His CXR looks like some fairly significant volume overload this morning and he is up a few liters during his stay. Will give Lasix x1 and see if we see some improvement. WBC downtrending and has been afebrile. Continue abx therapy. Renal function stable. Hopefully will see some improvement in respiratory status today after gentle diuresis. <Rigoberto Delatorre - Last Filed: 12/17/17 10:09>
[2017-12-17 07:32] LABS: Actual Bicarbonate (HCO3a) 31.7 mEq/L (22-28); CO2 Tension 48.8 mmHg (35.0-45.0); Carboxyhemoglobin (COHb) 1.2 gm% (0.0-3.0); Hemoglobin (Hb) 16.9 g/dL (14.0-18.0); O2 Tension (PaO2) 67.4 mmHg (> 80.0); pH, Arterial 7.43 (7.35-7.45)
[2017-12-17 07:43] LABS: Puncture Site RRA
--- NOTE | 2017-12-17 08:22 | RAD ---
PORTABLE CHEST: Date: 12/17/17 HISTORY: Ventilator and CCU follow-up. COMPARISON: 12/16/17. FINDINGS: ET tube and NG tube remain in place. There is cardiomegaly and vascular congestion. Left-sided effusi on and left basilar atelectasis/infiltrate. IMPRESSION: Findings have not significantly changed since yesterday. POS: [facility]
[2017-12-17] MEDS: Lisinopril 20 MG TAB PO SCH (08:30)
[2017-12-17] MEDS: Folic Acid 1 MG TAB PO SCH (08:30)
[2017-12-17] MEDS: Pantoprazole 40 MG VIAL IVP SCH (08:30)
[2017-12-17] MEDS ORDERED: Carvedilol 6.25 MG TAB PO SCH (09:00)
[2017-12-17 09:12] LABS: Vancomycin, Trough 13.2 ug/mL
[2017-12-17] MEDS ORDERED: BSS Opth Solution 15ml BOT EA EYE SCH (10:00)
[2017-12-17] MEDS ORDERED: Furosemide 20 MG/2 ML VIAL SLOW IVP SCH (10:15)
--- NOTE | 2017-12-17 11:26 | PRG ---
DATE OF SERVICE: 12/17/2017 Thirty-five minutes critical care time. SUBJECTIVE: Mr. Mcdowell remains intubated on mechanical ventilation. He will arouse. PHYSICAL EXAMINATION: VITAL SIGNS: His temperature is 98.6, pulse 93, blood pressure 183/94. A 24-hour intake 2175, outpu t 1930. HEENT: Unremarkable. NECK: No JVD. CHEST: Fairly clear anteriorly. CARDIOVASCULAR: S1 and S2 regular. ABDOMEN: Soft. EXTREMITIES: No edema. LABORATORY DATA: White blood cell count 13.2, hematocrit 51.7, platelet count 228. PH 7.43, pCO2 of 48, pO2 67 on SIMV rate 14 under pressure control with a pressure of 19 and PEEP of 8. Sodium 141, potassium 4.5, chloride 101, CO2 33, BUN 37, creatinine 1.2, glucose 163. X-RAY FINDINGS: His chest x-ray shows mild cardiomegaly. Overall, the appearance of the left lung i s better. ASSESSMENT: 1. Improved respiratory failure. 2. Pneumonia. 3. Deconditioning. 4. Diabetes. 5. Acute renal insufficiency. PLAN: Spontaneous breathing trial, may be able to extubate to high flow oxygen.
[2017-12-17] MEDS: Lorazepam 2 MG/ML VIAL SLOW IVP PRN ×3 (11:34→15:35)
[2017-12-17] MEDS: HumaLOG 300 UNITS/3 ML VIAL SC PRN ×3 (12:51→20:33)
[2017-12-17] MEDS: Carvedilol 6.25 MG TAB PO SCH (17:49)
[2017-12-17] MEDS: Nicotine 21 MG PATCH TD SCH (17:50)
[2017-12-17] MEDS: Enoxaparin Sodium 40 MG/0.4 ML SYRINGE SC SCH (20:31)
[2017-12-17] MEDS: Amitriptyline HCl 25 MG TAB PO SCH (20:31)
[2017-12-17] MEDS: Artificial Tear Sol 15 ML BOT EA EYE PRN (20:50)
[2017-12-18] MEDS: Clindamycin/D5W 600 MG in Premix Bag 1 BAG IVPB SCH ×5 (00:27→23:43)
[2017-12-18] MEDS: Propofol 1,000 MG/100 ML VIAL IV PRN (02:10)
[2017-12-18] MEDS: Artificial Tear Sol 15 ML BOT EA EYE PRN (04:55)
[2017-12-18] MEDS: HumaLOG 300 UNITS/3 ML VIAL SC PRN ×2 (04:55→12:51)
[2017-12-18 05:52] LABS: #Eosinphils 0.1 thou/uL (0.0-0.7); #Lymphocytes 0.7 thou/uL (1.20-3.40); #Monocytes 1.3 thou/uL (0.11-0.59); #Neutrophils 14.2 thou/uL (1.40-6.50); %Eosinophils 0.7 % (0.0-10.0); %Lymphocytes 4.4 % (21.0-51.0); %Monocytes 8.1 % (0.0-10.0); %Neutrophils 86.8 % (42.0-75.0); Hemoglobin 17.1 g/dL (14.0-18.0); Mean Corpuscular HGB CONC 30.5 g/dL (32.0-36.0); Mean Corpuscular Hemoglobin 28.1 pg (27.0-31.0); Mean Corpuscular Volume 92.1 fL (78.0-98.0); Mean Platelet Volume 7.9 fL (7.4-10.4); Platelet Count 229 thou/uL (130-400); RBC Distribution Width 14.7 % (11.5-14.5); Red Blood Cell (RBC) Count 6.08 mill/uL (4.70-6.10); White Blood Cell (WBC) Count 16.4 thou/uL (4.8-10.8)
--- NOTE | 2017-12-18 07:07 | PDOC.FM ---
- Subjective Subjective: 67 yoblanco granger admitted for acute hypoxic hypercapnic respiratory failure and sepsis 2/2 LLL pna/copd exacerbation. O/N: Awake and alert, responding to questions with hand signals on the vent; sedation turned off this morning, extubated after that. Saturating in low 90s, but pt has COPD, likely BRYAN as well. - Objective MAR Reviewed: Yes Vital Signs & Weight: Vital Signs (12 hours) Temp Pulse Resp Pulse Ox 12/18/17 06:00 25 H 12/18/17 04:00 98.1 F 29 H 12/18/17 02:35 72 22 H 92 L 12/18/17 00:00 98.0 F 23 H 12/17/17 22:05 77 23 H 91 L 12/17/17 22:00 24 H 12/17/17 20:00 22 H 94 L Weight Admit Weight 107.5 kg Weight 107.5 kg Most Recent Monitor Data Heart Rate from ECG 85 NIBP 180/100 NIBP BP-Mean 126 Respiration from ECG 25 SpO2 89 I&O: 12/17/17 12/18/17 12/19/17 06:59 06:59 06:59 Intake Total 2175.2 1769 Output Total 1930 4125 Balance 245.2 -2356 Result Diagrams: 12/18/17 04:40 12/18/17 07:24 <Lydia Levy - Last Filed: 12/18/17 10:14> - Objective Vital Signs & Weight: Vital Signs (12 hours) Temp Pulse Pulse Pulse Resp BP BP 12/18/17 14:24 98 23 H 12/18/17 13:00 102 H 94 195/99 H 12/18/17 12:55 92 173/98 H 12/18/17 10:46 92 24 H 12/18/17 08:45 90 19 12/18/17 08:01 188/107 H 12/18/17 08:00 97.9 F 30 H 188/107 H 12/18/17 07:15 72 12/18/17 06:00 25 H 12/18/17 04:00 98.1 F 29 H BP Pulse Ox Pulse Ox Pulse Ox 12/18/17 14:24 94 L 12/18/17 13:00 175/95 H 78 L 88 L 12/18/17 12:55 12/18/17 10:46 91 L 12/18/17 08:45 88 L 12/18/17 08:01 12/18/17 08:00 12/18/17 07:15 12/18/17 06:00 12/18/17 04:00 Weight Admit Weight 107.5 kg Weight 107.5 kg Most Recent Monitor Data Heart Rate from ECG 107 NIBP 188/107 NIBP BP-Mean 134 Respiration from ECG 32 SpO2 90 I&O: 12/17/17 12/18/17 12/19/17 06:59 06:59 06:59 Intake Total 2175.2 1769 57 Output Total 1930 4125 280 Balance 245.2 -3826 -223 Result Diagrams: 12/18/17 04:40 12/18/17 07:24 <Annie Mason - Last Filed: 12/18/17 15:21> Phys Exam - Physical Examination Constitutional: NAD HEENT: PERRLA Respiratory: no wheezing coarse breath sounds throughout lung foster tachycardic Gastrointestinal: soft, non-tender Musculoskeletal: no edema Neurological: non-focal Skin: no rash <Lydia Levy - Last Filed: 12/18/17 10:14> Dx/Plan (1) Acute respiratory failure with hypoxia and hypercapnia Code(s): J96.01 - ACUTE RESPIRATORY FAILURE WITH HYPOXIA; J96.02 - ACUTE RESPIRATORY FAILURE WITH HYPERCAPNIA Status: Acute (2) Sepsis Code(s): A41.9 - SEPSIS, UNSPECIFIED ORGANISM Status: Acute (3) Left lower lobe pneumonia Code(s): J18.1 - LOBAR PNEUMONIA, UNSPECIFIED ORGANISM Status: Acute (4) Diabetes type 2, controlled Code(s): E11.9 - TYPE 2 DIABETES MELLITUS WITHOUT COMPLICATIONS Status: Acute (5) HTN (hypertension) Code(s): I10 - ESSENTIAL (PRIMARY) HYPERTENSION Status: Acute (6) LEXA (acute kidney injury) Code(s): N17.9 - ACUTE KIDNEY FAILURE, UNSPECIFIED Status: Acute (7) COPD exacerbation Code(s): J44.1 - CHRONIC OBSTRUCTIVE PULMONARY DISEASE W (ACUTE) EXACERBATION Status: Acute (8) Stage 1 decubitus ulcer Code(s): L89.91 - PRESSURE ULCER OF UNSPECIFIED SITE, STAGE 1 Status: Acute (9) PAD (peripheral artery disease) Code(s): I73.9 - PERIPHERAL VASCULAR DISEASE, UNSPECIFIED Status: Acute - Plan Plan: 67 YO gentleman with a PMH significant for COPD, DMII not on insulin, HTN and HLD who presents intubated/sedated admitted for Acute hypoxic hypercapnic respiratory failure 2/2 Sepsis from CAP. Hospital day: 4 Acute hypoxic hypercapnic respiratory failure - O/N: SIMV pressure PC, PS 15, Peep 8 FiO2 45%; sedation stopped, pt extubated this morning - Will continue with IV levaquin, clindamicin, vanc; consider fluconazole or micafungin - Continue IV steroids and VINCENT Duonebs for COPD. - echo and BNP ordered d/t concern for CHF Sepsis 2/2 CAP - Levaquin for CAP coverage, Clinda for anaerobes, Van for gram + cocci in clusters - respiratory cx + yeast; consider fluconazole or micafungin - Blood cultures done in the ED and NGTD - adv diet as tolerated Encephalopathy w/ dysarthria likely 2/2 hypoxia and hypercapnea - Will treat underlying PNA which likely triggered the COPD exacerbation. - Will continue IV steroids and VINCENT Duonebs as well to improve ventilation. Hyperkalemia -5.8 -Will hold Lisinopril tonight -Consider Lasix 20mg IV -Calcium gluconate given -pt getting duonebs -consider 10U regular insulin LEXA, resolving - Likely 2/2 poor PO intake and increased demand from sepsis. - Will continue to monitor with QD BMPs. - Net -2.3L - Adequate UOP: 4.1L/24 hours ~ 170/hr Acute exacerbation of COPD - Will continue VINCENT Duonebs and IV steroids & treat likely exacerbating factor, PNA, as described above. - Will consider initiating QD inhaled meds once patient is alert and able to tolerate them. - Respiratory acidosis w/ concomittant metabolic alkalosis DMII - mild SSI as patient is insulin naive. - ACHS accuchecks and order hypoglycemia protocol. HTN - Held lisinopril/hctz - Hydralazine 20mg IV prn sbp>180 BRYAN on CPAP - Will resume CPAP once patient is off ventilatory support. h/o GERD w/ chronic dysphagia - Continue PPI HLD - Will initiate statin therapy once patient is able to tolerate PO. h/o testicular CA - Aware. Patient is s/p unilateral orchietomy. Significant tobacco use - Patient has a calculated 200 pack year smoking history. - Nitcotine patch ordered and will educate on cessation once extubated and alert. <Lydia Levy - Last Filed: 12/18/17 10:14> Attending Addendum - Attending Addendum Date/Time: 12/18/17 5145 I personally evaluated the patient and discussed the management with Dr. Levy I agree with the History, Examination, Assessment and Plan documented above with any addition or exceptions noted below. 67 yo male with multiple medical conditions admitted on 12/14/17 for respirator failure HD#4 Patient recently extubated. On NRB VS reviewed, labs reviewed, imaging reviewed 1. Hypercapnic RF: s/p extubation this morning. Pulm following. 2. Severe COPD: Continue steroids consider switching to PO if remains extubated. Continue scheduled breathing treatments. 3. LLL pneumonia: Continue emperic antibiotics. Bld cx NTD. Concern for aspiration due to initial presentation. 4. Severe HTN: Continue to adjust home meds throughout the day to keep BP < 150/ 90 (increase coreg to 25 BID, increase HCTZ to 25 mg bid, consider adding CCB if remains elevated). Add IV for extreme elevation in BP. Wondering if patient has possible sascha syndrome with exogenous steroids worsening BP however elevated K not fitting into picture. Continue to monitor. Need to get BP down due to PAD and demand ischemia. Needs ASA and statin if not already on. 5. hyperkalemia: Hold ACEI. Treat. EKG now. 6. LEXA: resolved. SilvanaMD <Annie Mason - Last Filed: 12/18/17 15:21>
[2017-12-18 07:09] LABS: Base Excess (BEa) 9.8 mEq/L (-2.0 to +3.0); Carboxyhemoglobin (COHb) 1.3 gm% (0.0-3.0); Hemoglobin (Hb) 17.9 g/dL (14.0-18.0); O2 Tension (PaO2) 66.1 mmHg (> 80.0); pH, Arterial 7.34 (7.35-7.45)
[2017-12-18 07:12] LABS: CO2 Tension 76.4 mmHg (35.0-45.0)
[2017-12-18 07:13] LABS: Puncture Site RRA
[2017-12-18] MEDS: hydrALAZINE 20 MG/ML VIAL SLOW IVP PRN ×2 (07:15→21:44)
[2017-12-18 07:55] LABS: Chloride 101 mmol/L (98-107); Potassium 5.8 mmol/L (3.5-5.1); Sodium 141 mmol/L (136-145)
[2017-12-18 07:56] LABS: Calcium 9.2 mg/dL (7.8-10.44); Glucose 162 mg/dL (80-115)
[2017-12-18 07:58] LABS: Anion Gap 13 mmol/L (10-20); Carbon Dioxide 33 mmol/L (23-31)
[2017-12-18 08:00] LABS: Calc. Creatinine Clearance 99 mL/min (70-130); Estimated GFR-MDRD 67
[2017-12-18] MEDS: Carvedilol 6.25 MG TAB PO SCH ×2 (08:00→17:00)
[2017-12-18 08:01] LABS: BUN (Urea Nitrogen) 44 mg/dL (8.4-25.7)
[2017-12-18] MEDS: Folic Acid 1 MG TAB PO SCH (08:01)
[2017-12-18] MEDS: Hydrochlorothiazide 25 MG TAB PO SCH (08:01)
[2017-12-18] MEDS: Lisinopril 20 MG TAB PO SCH (08:01)
[2017-12-18] MEDS: Pantoprazole 40 MG VIAL IVP SCH (08:02)
[2017-12-18] MEDS ORDERED: Calcium Gluc 4.6 MEQ/10 ML (100 MG/ML) SLOW IVP ONE (08:13)
[2017-12-18] MEDS ORDERED: hydrALAZINE 20 MG/ML VIAL SLOW IVP SCH (08:15)
[2017-12-18] MEDS ORDERED: Insulin Regular 300 UNITS/3 ML VIAL SC SCH (08:15)
[2017-12-18] MEDS ORDERED: Furosemide 20 MG/2 ML VIAL SLOW IVP SCH (08:15)
[2017-12-18] MEDS ORDERED: DC Sedation Protocol FS ONE (08:46)
--- NOTE | 2017-12-18 08:56 | RAD ---
SINGLE VIEW OF THE CHEST: Comparison: 12-17-17 History: Ventilated patient with respiratory failure. FINDINGS: Single view of the chest shows an enlarged but stable cardiomediastinal silhouette. The lines and tub es are unchanged in position. Increased interstitial markings are present. There appears to be a smal l left pleural effusion. IMPRESSION: Stable exam. POS: [facility]
[2017-12-18] MEDS ORDERED: Non-Formulary Item 1 EACH (Hydrochlorothiazide [Hydrochlorothiazide] 12.5 MG) PO SCH (09:00)
--- NOTE | 2017-12-18 09:31 | PRG ---
DATE OF SERVICE: 12/18/2017 Mr. Mcdowell this morning is awake, alert, responsive. He is banging his hand on the side rails. PHYSICAL EXAMINATION: VITAL SIGNS: Pulse 103, blood pressure is 119/80, sats 90%, respirations 26. He wants his endotrach eal tube out. All of his cultures are so far negative. I's and O's are 1769 in, 4125 out. CHEST: Chest revealed bilateral wheezing. CARDIAC: Sinus tachycardia. ABDOMEN: Massive. EXTREMITIES: Trace edema. LABORATORY DATA: White count 16,000, H&H 7 and 56, platelet count 229, PO2 66, pCO2 76, pH 7.34 on a rate of 24. BUN and creatinine are 44 and 1.0. X-ray shows a left-sided infiltrate. IMPRESSION: 1. Chronic obstructive pulmonary disease. 2. Morbid obesity. 3. Respiratory failure. 4. Severe deconditioning. 5. Sleep apnea. PLAN: I will try and extubate. He is probably going to need noninvasive ventilation following extub ation. Steroids, antibiotics, neb treatments. One-half hour critical care time.
[2017-12-18] MEDS: Sodium Chloride 0.65% Nasal 44 ML BOT EA NARE SCH ×3 (11:40→20:15)
[2017-12-18] MEDS: Fluticasone Propionate Nasal Spray 16 gm Bottle NASAL SCH (11:41)
[2017-12-18] MEDS: Enoxaparin Sodium 40 MG/0.4 ML SYRINGE SC SCH (20:13)
[2017-12-18] MEDS: Amitriptyline HCl 25 MG TAB PO SCH (20:13)
[2017-12-18] MEDS: Nicotine 21 MG PATCH TD SCH (20:30)
[2017-12-19] MEDS: hydrALAZINE 20 MG/ML VIAL SLOW IVP PRN (03:12)
[2017-12-19 05:46] LABS: #Eosinphils 0.2 thou/uL (0.0-0.7); #Lymphocytes 0.6 thou/uL (1.20-3.40); #Neutrophils 15.2 thou/uL (1.40-6.50); %Basophils 0.1 % (0.0-1.0); %Eosinophils 0.9 % (0.0-10.0); %Lymphocytes 3.8 % (21.0-51.0); %Monocytes 5.9 % (0.0-10.0); %Neutrophils 89.3 % (42.0-75.0); Mean Corpuscular HGB CONC 30.1 g/dL (32.0-36.0); Mean Corpuscular Hemoglobin 27.3 pg (27.0-31.0); Mean Corpuscular Volume 90.9 fL (78.0-98.0); Mean Platelet Volume 7.4 fL (7.4-10.4); Platelet Count 234 thou/uL (130-400); RBC Distribution Width 14.8 % (11.5-14.5)
[2017-12-19 06:06] LABS: Anion Gap 12 mmol/L (10-20); BUN (Urea Nitrogen) 42 mg/dL (8.4-25.7); Calc. Creatinine Clearance 100 mL/min (70-130); Calcium 9.4 mg/dL (7.8-10.44); Carbon Dioxide 36 mmol/L (23-31); Chloride 98 mmol/L (98-107); Estimated GFR-MDRD 67; Glucose 152 mg/dL (80-115); Potassium 4.6 mmol/L (3.5-5.1); Sodium 141 mmol/L (136-145)
[2017-12-19] MEDS: Clindamycin/D5W 600 MG in Premix Bag 1 BAG IVPB SCH (06:28)
--- NOTE | 2017-12-19 07:25 | PDOC.FM ---
- Subjective Subjective: 67 yo gentleman admitted for acute hypoxic hypercapnic respiratory failure and sepsis 2/2 LLL pna/copd exacerbation. Hosp day: 5 O/N: Extubated yesteray morning. Requiring 5L oxygen via NC. Agitated this morning because he's tired and didn't sleep all night. - Objective MAR Reviewed: Yes Vital Signs & Weight: Vital Signs (12 hours) Temp Pulse Resp BP Pulse Ox 12/19/17 04:00 98.2 F 12/19/17 03:12 82 12/19/17 02:32 82 22 H 91 L 12/18/17 22:31 90 26 H 91 L 12/18/17 21:44 91 187/102 H 12/18/17 20:00 98.1 F 92 L Weight Admit Weight 107.5 kg Weight 107.5 kg Most Recent Monitor Data Heart Rate from ECG 89 NIBP 174/101 NIBP BP-Mean 125 Respiration from ECG 24 SpO2 91 I&O: 12/18/17 12/19/17 12/20/17 06:59 06:59 06:59 Intake Total 1769 1044 Output Total 4125 4148 Balance -9040 -9110 Result Diagrams: 12/19/17 05:30 12/19/17 05:30 <Lydia Levy - Last Filed: 12/19/17 09:23> - Objective Vital Signs & Weight: Weight Admit Weight 107.5 kg Weight 107.615 kg Most Recent Monitor Data Heart Rate from ECG 84 NIBP 168/91 NIBP BP-Mean 116 Respiration from ECG 25 SpO2 91 Result Diagrams: 12/21/17 04:19 12/21/17 04:19 <Annie Mason - Last Filed: 12/25/17 08:43> Phys Exam - Physical Examination Constitutional: NAD HEENT: PERRLA dry mm wheezing bilateral upper lobes; crackles left sided Cardiovascular: no significant murmur tachycardic Gastrointestinal: soft, non-tender, no distention Musculoskeletal: no edema Neurological: non-focal Psychiatric: normal affect, A&O x 3 Skin: no rash <Lydia Levy - Last Filed: 12/19/17 09:23> Dx/Plan (1) Acute respiratory failure with hypoxia and hypercapnia Code(s): J96.01 - ACUTE RESPIRATORY FAILURE WITH HYPOXIA; J96.02 - ACUTE RESPIRATORY FAILURE WITH HYPERCAPNIA Status: Acute (2) Sepsis Code(s): A41.9 - SEPSIS, UNSPECIFIED ORGANISM Status: Acute (3) Left lower lobe pneumonia Code(s): J18.1 - LOBAR PNEUMONIA, UNSPECIFIED ORGANISM Status: Acute (4) Diabetes type 2, controlled Code(s): E11.9 - TYPE 2 DIABETES MELLITUS WITHOUT COMPLICATIONS Status: Acute (5) HTN (hypertension) Code(s): I10 - ESSENTIAL (PRIMARY) HYPERTENSION Status: Acute (6) LEXA (acute kidney injury) Code(s): N17.9 - ACUTE KIDNEY FAILURE, UNSPECIFIED Status: Acute (7) COPD exacerbation Code(s): J44.1 - CHRONIC OBSTRUCTIVE PULMONARY DISEASE W (ACUTE) EXACERBATION Status: Acute (8) Stage 1 decubitus ulcer Code(s): L89.91 - PRESSURE ULCER OF UNSPECIFIED SITE, STAGE 1 Status: Acute (9) PAD (peripheral artery disease) Code(s): I73.9 - PERIPHERAL VASCULAR DISEASE, UNSPECIFIED Status: Acute - Plan Plan: 67 YO gentleman with a PMH significant for COPD, DMII not on insulin, HTN and HLD who presents intubated/sedated admitted for Acute hypoxic hypercapnic respiratory failure 2/2 Sepsis from CAP. Hospital day: 5 Acute hypoxic hypercapnic respiratory failure - pt extubated yesterday morning, requring 5L NC O2; goal 88-92% 2/2 COPD and likely BRYAN - Will transition Levaquin to PO, dc clindamicin and vanc, will also change IV methylpred to PO prednisone - VINCENT Duonebs for COPD. - echo had a normal EF, BNP slightly elevated Sepsis 2/2 CAP - Levaquin for CAP coverage, will transition to PO today - Blood cultures done in the ED and NGTD - pt failes speech swallow study, ice chips for now but continue NPO Encephalopathy w/ dysarthria likely 2/2 hypoxia and hypercapnea - resolved; a&ox3 - Will treat underlying PNA which likely triggered the COPD exacerbation. Hyperkalemia -resolved -monitor with daily bmps LEXA, improved - Likely 2/2 poor PO intake and increased demand from sepsis. - Will continue to monitor with QD BMPs. - Net -3L - Adequate UOP: 4.7L/24 hours ~195/hr Acute exacerbation of COPD - Will continue VINCENT Duonebs and transition to po prednisone - started on dulera today DMII - mild SSI as patient is insulin naive. - ACHS accuchecks and order hypoglycemia protocol. HTN - restarted lisinopril/hctz - Hydralazine 20mg IV prn sbp>180 BRYAN on CPAP - Will resume CPAP once patient is off ventilatory support. h/o GERD w/ chronic dysphagia - Continue PPI HLD - atorvastatin 40mg daily h/o testicular CA - Aware. Patient is s/p unilateral orchietomy. Significant tobacco use - Patient has a calculated 200 pack year smoking history. - Nitcotine patch ordered and will educate on cessation once extubated and alert. <Lydia Levy - Last File <Lydia Levy - Last Filed: 12/19/17 09:23> Attending Addendum - Attending Addendum Date/Time: 12/19/17 0837 I personally evaluated the patient and discussed the management with Dr. Levy I agree with the History, Examination, Assessment and Plan documented above with any addition or exceptions noted below. 67 yo male with multiple medical conditions admitted on 12/14/17 for respirator failure HD#5 Required NC overnight. VS reviewed, labs reviewed, imaging reviewed 1. Hypercapnic RF: s/p extubation. Pulm following. On NC. Can likely be transfered to step down unit today. 2. Severe COPD: Continue steroids, switching to PO. Continue scheduled breathing treatments. 3. LLL pneumonia: Consider de-escalating to PO antibiotics today. Bld cx NTD. Concern for aspiration due to initial presentation. 4. Severe HTN: Continue to adjust meds. Needs ASA and statin if not already on. 5. Demand ischemia: Needs cards workup outpatient. 6. LEXA: resolved. Maulik <Annie Mason - Last Filed: 12/25/17 08:43>
[2017-12-19] MEDS: Carvedilol 25 MG TAB PO SCH ×2 (08:06→18:04)
[2017-12-19 08:09] LABS: Cardiac Risk 4.5 (Less than 4.5)
[2017-12-19] MEDS ORDERED: ALPRAZolam 0.25 MG TAB PO SCH ×2 (09:15→15:00)
[2017-12-19] MEDS: Aspirin 81 mg Enteric Coated Tablet PO SCH (09:15)
[2017-12-19] MEDS: Hydrochlorothiazide 25 MG TAB PO SCH ×2 (09:16→20:41)
[2017-12-19] MEDS: Folic Acid 1 MG TAB PO SCH (09:16)
[2017-12-19] MEDS: Fluticasone Propionate Nasal Spray 16 gm Bottle NASAL SCH (09:17)
[2017-12-19] MEDS: Sodium Chloride 0.65% Nasal 44 ML BOT EA NARE SCH ×3 (09:18→22:37)
--- NOTE | 2017-12-19 09:23 | RAD ---
SINGLE VIEW OF THE CHEST: Comparison: 12-18-17 History: Pneumonia. FINDINGS: Single view of the chest shows a normal sized cardiomediastinal silhouette. There is no evidence of c onsolidation, mass, or pleural effusion. The bones are unremarkable. IMPRESSION: No evidence of acute cardiopulmonary disease. POS: [facility]
[2017-12-19 09:27] LABS: Vancomycin, Trough 17.3 ug/mL
--- NOTE | 2017-12-19 11:10 | PRG ---
DATE OF SERVICE: 12/19/2017 This morning he is awake, responsive. He did not sleep last night. PHYSICAL EXAMINATION: VITAL SIGNS: Sats are 91 on 4 liters, pulse 91, blood pressure 199/86, respiration rate 18. CHEST: Chest reveals decreased breath sounds, prolonged expiration, minimal wheezing, crackles in th e left base. CARDIAC: Normal S1, S2. No gallops. ABDOMEN: Soft, without masses. LABORATORY DATA: Creatinine is 1.0, back to normal. White count is 17,000, H&H is 18 and 60. He is better. IMPRESSION: 1. End-stage chronic obstructive pulmonary disease. 2. Probably sleep apnea. 3. Left lower pneumonia. PLAN: Continue aggressive neb treatments, PT and supportive care. He can be transferred out to [facility] bed. One-half hour critical care time.
--- NOTE | 2017-12-19 16:50 | PDOC.EVN ---
Event Note - Event Note Event Note: Spoke with Mr. Mcdowell for the first time since admission when he came in intubated. His son was also in the room. The son states that the daughter found him passed on in vomit and called EMS. He informed me that a doctor in [facility] thinks he has achalasia and he was supposed to go to [place] for a study. He also informed me that he went on a cruise recently in November and he is worried he got this pneumonia from the cruise. He reported that he does not use a breathing machine at night, although I discussed with him that he likely needs one. He also reported that he could not sleep at all last night. He usually takes ambien at home. Discussed with Dr. Roque trying xanax. The patient doesn't like how xanax makes him feel, so when I saw him this afternoon, we discussed a longer-acting option such as clonazepam. He was breathing comfortably on 4L NC and saturating at 90%.
[2017-12-19] MEDS: Nicotine 21 MG PATCH TD SCH (18:04)
[2017-12-19] MEDS: Mometasone/Formoterol 120 PUFF INHALER INH SCH (18:46)
[2017-12-19] MEDS: predniSONE 20 MG TAB PO SCH (20:41)
[2017-12-19] MEDS: Amitriptyline HCl 25 MG TAB PO SCH (20:41)
[2017-12-19] MEDS: Atorvastatin Calcium 40 MG TAB PO SCH (20:41)
[2017-12-19] MEDS: Enoxaparin Sodium 40 MG/0.4 ML SYRINGE SC SCH (20:41)
[2017-12-19] MEDS: clonazePAM 0.5 MG TAB PO PRN (20:42)
[2017-12-19] MEDS ORDERED: Atorvastatin Calcium 40 MG TAB PO SCH (21:00)
[2017-12-20 04:49] LABS: Anion Gap 12 mmol/L (10-20); BUN (Urea Nitrogen) 48 mg/dL (8.4-25.7); Calc. Creatinine Clearance 96 mL/min (70-130); Calcium 9.3 mg/dL (7.8-10.44); Carbon Dioxide 34 mmol/L (23-31); Chloride 97 mmol/L (98-107); Estimated GFR-MDRD 65; Glucose 148 mg/dL (80-115); Potassium 4.6 mmol/L (3.5-5.1); Sodium 138 mmol/L (136-145)
[2017-12-20 04:52] LABS: #Eosinphils 0.1 thou/uL (0.0-0.7); #Lymphocytes 0.8 thou/uL (1.20-3.40); #Monocytes 1.3 thou/uL (0.11-0.59); #Neutrophils 13.3 thou/uL (1.40-6.50); %Basophils 0.1 % (0.0-1.0); %Eosinophils 0.7 % (0.0-10.0); %Lymphocytes 5.3 % (21.0-51.0); %Monocytes 8.1 % (0.0-10.0); %Neutrophils 85.8 % (42.0-75.0); Hemoglobin 17.6 g/dL (14.0-18.0); Mean Corpuscular HGB CONC 31.8 g/dL (32.0-36.0); Mean Corpuscular Hemoglobin 29.1 pg (27.0-31.0); Mean Corpuscular Volume 91.6 fL (78.0-98.0); Mean Platelet Volume 7.8 fL (7.4-10.4); Platelet Count 189 thou/uL (130-400); RBC Distribution Width 14.4 % (11.5-14.5); Red Blood Cell (RBC) Count 6.03 mill/uL (4.70-6.10); White Blood Cell (WBC) Count 15.5 thou/uL (4.8-10.8)
--- NOTE | 2017-12-20 07:16 | PDOC.FM ---
- Subjective Subjective: 67 yo gentleman admitted for acute hypoxic hypercapnic respiratory failure and sepsis 2/2 LLL pna/copd exacerbation. Hosp day: 6 O/N: Saturating in the low 90s on 4L oxygen via NC. Comfortable. Slept better last night. - Objective MAR Reviewed: Yes Vital Signs & Weight: Vital Signs (12 hours) Temp Pulse Resp BP Pulse Ox 12/20/17 04:22 97.9 F 80 18 163/59 H 93 L 12/20/17 02:19 79 20 93 L 12/20/17 00:20 97.4 F L 74 19 165/95 H 93 L 12/19/17 22:21 72 16 93 L 12/19/17 19:33 97.6 F 79 19 157/89 H 93 L Weight Admit Weight 107.5 kg Weight 109.571 kg Most Recent Monitor Data Heart Rate from ECG 84 NIBP 168/91 NIBP BP-Mean 116 Respiration from ECG 25 SpO2 91 I&O: 12/19/17 12/20/17 12/21/17 06:59 06:59 06:59 Intake Total 1044 1310 Output Total 4749 2975 Balance -6401 -3741 Result Diagrams: 12/20/17 04:04 12/20/17 04:04 <Lydia Levy - Last Filed: 12/20/17 11:36> - Objective Vital Signs & Weight: Weight Admit Weight 107.5 kg Weight 107.615 kg Most Recent Monitor Data Heart Rate from ECG 84 NIBP 168/91 NIBP BP-Mean 116 Respiration from ECG 25 SpO2 91 Result Diagrams: 12/21/17 04:19 12/21/17 04:19 <Annie Mason - Last Filed: 12/25/17 09:26> Phys Exam - Physical Examination Constitutional: NAD HEENT: PERRLA, moist MMs decreased breath sounds thorughout lung foster, more decreased on left Cardiovascular: RRR, no significant murmur Gastrointestinal: soft, non-tender, no distention Musculoskeletal: no edema Neurological: non-focal, normal sensation Psychiatric: normal affect, A&O x 3 Skin: no rash, cap refill <2 seconds <Lydia Levy - Last Filed: 12/20/17 11:36> Dx/Plan (1) Acute respiratory failure with hypoxia and hypercapnia Code(s): J96.01 - ACUTE RESPIRATORY FAILURE WITH HYPOXIA; J96.02 - ACUTE RESPIRATORY FAILURE WITH HYPERCAPNIA Status: Acute (2) Sepsis Code(s): A41.9 - SEPSIS, UNSPECIFIED ORGANISM Status: Acute (3) Left lower lobe pneumonia Code(s): J18.1 - LOBAR PNEUMONIA, UNSPECIFIED ORGANISM Status: Acute (4) Diabetes type 2, controlled Code(s): E11.9 - TYPE 2 DIABETES MELLITUS WITHOUT COMPLICATIONS Status: Acute (5) HTN (hypertension) Code(s): I10 - ESSENTIAL (PRIMARY) HYPERTENSION Status: Acute (6) LEXA (acute kidney injury) Code(s): N17.9 - ACUTE KIDNEY FAILURE, UNSPECIFIED Status: Acute (7) COPD exacerbation Code(s): J44.1 - CHRONIC OBSTRUCTIVE PULMONARY DISEASE W (ACUTE) EXACERBATION Status: Acute (8) Stage 1 decubitus ulcer Code(s): L89.91 - PRESSURE ULCER OF UNSPECIFIED SITE, STAGE 1 Status: Acute (9) PAD (peripheral artery disease) Code(s): I73.9 - PERIPHERAL VASCULAR DISEASE, UNSPECIFIED Status: Acute - Plan Plan: 67 YO gentleman with a PMH significant for COPD, DMII not on insulin, HTN and HLD who presents intubated/sedated admitted for Acute hypoxic hypercapnic respiratory failure 2/2 Sepsis from CAP. Hospital day: 6 Acute hypoxic hypercapnic respiratory failure - pt requiring 4L NC O2; goal 88-92% 2/2 COPD and likely BRYAN, needs outpatient sleep study - Levaquin 750mg PO daily and prednisone 20mg BID - DONAL Duonebs for COPD - echo had a normal EF, BNP slightly elevated Sepsis 2/2 CAP - Levaquin 750mg daily - Blood cultures NGTD LEXA, improved - Will continue to monitor with QD BMPs. - Net -1.6L - Adequate UOP >100ml/hr Acute exacerbation of COPD - Continue prednisione 20mg BID - Continue levaquin 750mg daily - Continue donal duonebs and alb prn shortness of breath - Continue dulera donal DMII - mild SSI as patient is insulin naive. - ACHS accuchecks and order hypoglycemia protocol. HTN - Continue lisinopril/hctz - Hydralazine 20mg IV prn sbp>180 BRYAN on CPAP - Pt denies using CPAP at home but ordered prn here h/o GERD w/ chronic dysphagia - Continue PPI HLD - atorvastatin 80 mg daily - ascvd risk for 10 years: 50% h/o testicular CA - Aware. Patient is s/p unilateral orchietomy. Significant tobacco use - Patient has a calculated 200 pack year smoking history. - Nitcotine patch ordered and will educate on cessation once extubated and alert. DVT prophylaxis: lovenox GI prophylaxis: protonix CODE: full dispo: dc to medical today <Lydia Levy - Last Filed: 12/20/17 11:36> Attending Addendum - Attending Addendum Date/Time: 12/20/17 5944 I personally evaluated the patient and discussed the management with Dr. Levy I agree with the History, Examination, Assessment and Plan documented above with any addition or exceptions noted below. 67 yo male with multiple medical conditions admitted on 12/14/17 for respiratory failure HD#6 Doing well. Can be transfered to floor today. VS reviewed, labs reviewed, imaging reviewed 1. Hypercapnic RF: Resolved. 2. Severe COPD: Continue steroids. Continue scheduled breathing treatments. Follow up pulm outpatient. 3. LLL pneumonia: Continue PO antibiotics. Bld cx NTD. Concern for aspiration due to initial presentation. 4. Sepsis: Resolved 5. HTN: Improved. Needs ASA and statin if not already on. 6. Demand ischemia: Needs cards workup outpatient. BB, ASA, statin. 7. LEXA: resolved. Maulik <Annie Mason - Last Filed: 12/25/17 09:26>
[2017-12-20] MEDS: Mometasone/Formoterol 120 PUFF INHALER INH SCH ×2 (07:31→21:51)
[2017-12-20] MEDS: Carvedilol 25 MG TAB PO SCH ×2 (08:10→18:17)
[2017-12-20] MEDS: Aspirin 81 mg Enteric Coated Tablet PO SCH (08:10)
[2017-12-20] MEDS: Folic Acid 1 MG TAB PO SCH (08:10)
[2017-12-20] MEDS: Fluticasone Propionate Nasal Spray 16 gm Bottle NASAL SCH (08:11)
[2017-12-20] MEDS: Hydrochlorothiazide 25 MG TAB PO SCH ×2 (08:11→20:55)
[2017-12-20] MEDS: predniSONE 20 MG TAB PO SCH ×2 (08:11→20:56)
[2017-12-20] MEDS: Sodium Chloride 0.65% Nasal 44 ML BOT EA NARE SCH ×3 (08:11→20:57)
--- NOTE | 2017-12-20 09:18 | PRG ---
DATE OF SERVICE: 12/20/2017 This morning, he is better, he is less short of breath. PHYSICAL EXAMINATION: VITAL SIGNS: Sats are 93 on 4 liters, respirations 20, pulse 86, temperature 97, blood pressure 157/ 81. CHEST: Decreased breath sounds, no wheezing. CARDIAC: Normal S1-S2. No gallops. ABDOMEN: Soft. No masses. X-ray still shows a left-sided infiltrate, though better. IMPRESSION: 1. Left pneumonia, culture negative. 2. Chronic obstructive pulmonary disease. 3. Sleep apnea. PLAN: P.o. antibiotics, p.o. steroids, neb treatments, supportive care.
--- NOTE | 2017-12-20 09:32 | RAD ---
CHEST 1 VIEW: Date: 12/20/17 INDICATION: History of pneumonia. COMPARISON: Prior exam dated 12/19/17. IMPRESSION: Left basilar air space opacity persists. There is worsening small left pleural effusion. There is a n ew right pleural effusion. There is worsening pulmonary vascular congestion. No pneumothorax is evide nt. IMPRESSION: 1. Worsening pulmonary vascular congestion and cardiomegaly. 2. Worsening small left and tiny right pleural effusion. 3. Persistent left basilar air space opacity. POS: [facility]
[2017-12-20 11:22] VITALS: BMI 32.7
[2017-12-20] MEDS: Nicotine 21 MG PATCH TD SCH (18:18)
[2017-12-20] MEDS: HumaLOG 300 UNITS/3 ML VIAL SC PRN (18:29)
[2017-12-20] MEDS: Enoxaparin Sodium 40 MG/0.4 ML SYRINGE SC SCH (20:55)
[2017-12-20] MEDS: Atorvastatin Calcium 40 MG TAB PO SCH (20:56)
[2017-12-20] MEDS: Amitriptyline HCl 25 MG TAB PO SCH (20:56)
[2017-12-20] MEDS: clonazePAM 0.5 MG TAB PO PRN (23:17)
[2017-12-21 04:44] LABS: #Eosinphils 0.2 thou/uL (0.0-0.7); #Lymphocytes 0.8 thou/uL (1.20-3.40); #Monocytes 1.1 thou/uL (0.11-0.59); #Neutrophils 13.1 thou/uL (1.40-6.50); %Basophils 0.1 % (0.0-1.0); %Eosinophils 1.1 % (0.0-10.0); %Lymphocytes 5.6 % (21.0-51.0); %Neutrophils 86.3 % (42.0-75.0); Hemoglobin 17.3 g/dL (14.0-18.0); Mean Corpuscular HGB CONC 30.6 g/dL (32.0-36.0); Mean Corpuscular Hemoglobin 28.1 pg (27.0-31.0); Platelet Count 184 thou/uL (130-400); RBC Distribution Width 14.3 % (11.5-14.5); Red Blood Cell (RBC) Count 6.15 mill/uL (4.70-6.10); White Blood Cell (WBC) Count 15.1 thou/uL (4.8-10.8)
[2017-12-21 05:05] LABS: Anion Gap 12 mmol/L (10-20); BUN (Urea Nitrogen) 46 mg/dL (8.4-25.7); Calc. Creatinine Clearance 93 mL/min (70-130); Calcium 9.3 mg/dL (7.8-10.44); Carbon Dioxide 36 mmol/L (23-31); Chloride 96 mmol/L (98-107); Estimated GFR-MDRD 61; Glucose 166 mg/dL (80-115); Potassium 4.8 mmol/L (3.5-5.1); Sodium 139 mmol/L (136-145)
[2017-12-21] MEDS: Mometasone/Formoterol 120 PUFF INHALER INH SCH ×2 (06:50→19:14)
--- NOTE | 2017-12-21 09:12 | PDOC.FM ---
- Subjective Subjective: Patient satting well on 2L O2 this AM. The patient was non-verbal during my exam this AM. He would nod and point and try to speak, but didn't ever talk. He nodded no any chest pain, cough, SOB, fevers, chills. - Objective MAR Reviewed: Yes Vital Signs & Weight: Vital Signs (12 hours) Temp Pulse Resp BP Pulse Ox 12/21/17 08:19 98.1 F 69 20 132/77 92 L 12/21/17 06:50 68 12 12/21/17 04:00 97.7 F 69 18 155/82 H 96 12/21/17 01:38 71 20 96 12/21/17 00:00 97.9 F 68 18 134/76 94 L 12/20/17 21:47 78 18 98 Weight Admit Weight 107.5 kg Weight 108.153 kg Most Recent Monitor Data Heart Rate from ECG 84 NIBP 168/91 NIBP BP-Mean 116 Respiration from ECG 25 SpO2 91 I&O: 12/20/17 12/21/17 12/22/17 06:59 06:59 06:59 Intake Total 1310 420 Output Total 2975 2400 Balance -1664 Result Diagrams: 12/21/17 04:19 12/21/17 04:19 <Mary Prater - Last Filed: 12/21/17 09:10> - Objective Vital Signs & Weight: Weight Admit Weight 107.5 kg Weight 107.615 kg Most Recent Monitor Data Heart Rate from ECG 84 NIBP 168/91 NIBP BP-Mean 116 Respiration from ECG 25 SpO2 91 Result Diagrams: 12/21/17 04:19 12/21/17 04:19 <Annie Mason - Last Filed: 12/25/17 09:31> Phys Exam - Physical Examination Constitutional: NAD on 2L O2 by NC HEENT: moist MMs, sclera anicteric decreased breath sounds diffusely with coarse rales in LLL Cardiovascular: RRR, no significant murmur, no rub Gastrointestinal: soft, non-tender, no distention, positive bowel sounds Psychiatric: normal affect, A&O x 3 Skin: normal turgor, cap refill <2 seconds <Mary Prater - Last Filed: 12/21/17 09:10> Dx/Plan (1) Sepsis Code(s): A41.9 - SEPSIS, UNSPECIFIED ORGANISM Status: Resolved Qualifiers: Sepsis type: sepsis due to unspecified organism Qualified Code(s): A41.9 - Sepsis, unspecified organism (2) Left lower lobe pneumonia Code(s): J18.1 - LOBAR PNEUMONIA, UNSPECIFIED ORGANISM Status: Acute Qualifiers: Pneumonia type: due to unspecified organism Qualified Code(s): J18.1 - Lobar pneumonia, unspecified organism (3) COPD exacerbation Code(s): J44.1 - CHRONIC OBSTRUCTIVE PULMONARY DISEASE W (ACUTE) EXACERBATION Status: Acute (4) Acute respiratory failure with hypoxia and hypercapnia Code(s): J96.01 - ACUTE RESPIRATORY FAILURE WITH HYPOXIA; J96.02 - ACUTE RESPIRATORY FAILURE WITH HYPERCAPNIA Status: Acute (5) LEXA (acute kidney injury) Code(s): N17.9 - ACUTE KIDNEY FAILURE, UNSPECIFIED Status: Acute (6) HTN (hypertension) Code(s): I10 - ESSENTIAL (PRIMARY) HYPERTENSION Status: Acute Qualifiers: Hypertension type: essential hypertension Qualified Code(s): I10 - Essential (primary) hypertension (7) PAD (peripheral artery disease) Code(s): I73.9 - PERIPHERAL VASCULAR DISEASE, UNSPECIFIED Status: Acute (8) Stage 1 decubitus ulcer Code(s): L89.91 - PRESSURE ULCER OF UNSPECIFIED SITE, STAGE 1 Status: Acute Qualifiers: Pressure injury location: sacral region Qualified Code(s): L89.151 - Pressure ulcer of sacral region, stage 1 (9) Diabetes type 2, controlled Code(s): E11.9 - TYPE 2 DIABETES MELLITUS WITHOUT COMPLICATIONS Status: Acute Qualifiers: Diabetes mellitus emt intermediate insulin use: without retirement use Diabetes mellitus complication status: with unspecified complications Qualified Code(s) : E11.8 - Type 2 diabetes mellitus with unspecified complications - Plan Plan: 67 y/o gentleman with a PMHx significant for COPD, DMII not on insulin , HTN and HLD who presented intubated/sedated admitted for Acute hypoxic hypercapnic respiratory failure 2/2 Sepsis from CAP. Hospital day: 7 Acute hypoxic hypercapnic respiratory failure pt requiring 2L NC O2; goal 88-92%. 2/2 COPD and likely BRYAN. Echo had a normal EF, BNP slightly elevated - Levaquin 750mg PO daily and prednisone 20mg BID - [facility] Duonebs for COPD - Needs outpatient sleep study Sepsis 2/2 LLL CAP - Levaquin 750mg daily - Blood cultures NGTD LEXA, improved - Will continue to monitor with QD BMPs. - Adequate UOP >100ml/hr Acute exacerbation of COPD - Continue prednisione 20mg BID - Continue levaquin 750mg daily - Continue donal duonebs and alb prn shortness of breath - Continue dulera [facility] DMII - mild SSI as patient is insulin naive. - ACHS accuchecks and order hypoglycemia protocol. HTN - Continue lisinopril/hctz - Hydralazine 20mg IV prn sbp>180 BRYAN on CPAP - Pt denies using CPAP at home but ordered prn here - Pt needs updated sleep study outpatient h/o GERD w/ chronic dysphagia - Continue PPI HLD - atorvastatin 80 mg daily - ascvd risk for 10 years: 50% h/o testicular CA - Aware. Patient is s/p unilateral orchietomy. Significant tobacco use - Patient has a calculated 200 pack year smoking history. - Nitcotine patch ordered and will educate on cessation once extubated and alert. DVT prophylaxis: lovenox GI prophylaxis: protonix CODE: full <Mary Prater - Last Filed: 12/21/17 09:10> Attending Addendum - Attending Addendum Date/Time: 12/21/17925 I personally evaluated the patient and discussed the management with Dr. Prater I agree with the History, Examination, Assessment and Plan documented above with any addition or exceptions noted below. 67 yo male with multiple medical conditions admitted on 12/14/17 for respiratory failure HD#7 Doing well. No acute events overnight. VS reviewed, labs reviewed. 1. Hypercapnic RF: Resolved. 2. Severe COPD: Continue steroids. Continue scheduled breathing treatments. Follow up pulm outpatient. On home NC oxygen. 3. LLL pneumonia: Continue PO antibiotics. Bld cx NTD. Concern for aspiration due to initial presentation. 4. Sepsis: Resolved 5. HTN: Improved. Needs ASA and statin if not already on. 6. Demand ischemia: Needs cards workup outpatient. BB, ASA, statin. Seen by cards inpatient. 7. LEXA: resolved. 8. DM: Continue to adjust meds to prevent hyperglycemia. ABrayMD <Annie Mason - Last Filed: 12/25/17 09:31>
[2017-12-21] MEDS: Hydrochlorothiazide 25 MG TAB PO SCH ×3 (10:04→20:19)
[2017-12-21] MEDS: Lisinopril 20 MG TAB PO SCH (10:04)
[2017-12-21] MEDS: Sodium Chloride 0.65% Nasal 44 ML BOT EA NARE SCH ×3 (10:05→20:49)
[2017-12-21] MEDS: Folic Acid 1 MG TAB PO SCH (10:05)
[2017-12-21] MEDS: Carvedilol 25 MG TAB PO SCH ×2 (10:05→18:32)
[2017-12-21] MEDS: Fluticasone Propionate Nasal Spray 16 gm Bottle NASAL SCH ×2 (10:06→20:20)
[2017-12-21] MEDS: predniSONE 20 MG TAB PO SCH ×2 (10:06→20:19)
[2017-12-21] MEDS: Aspirin 81 mg Enteric Coated Tablet PO SCH (10:09)
--- NOTE | 2017-12-21 11:47 | PRG ---
DATE OF SERVICE: 12/21/2017 SUBJECTIVE: This morning, awake, alert, responsive. He is weak, but less short of breath. OBJECTIVE: VITAL SIGNS: Sats are 92 on 2 liters, respirations 20, temperature 98, blood pressure 132/77. CHEST: Decreased breath sounds, no wheezing. CARDIAC: Normal S1 and S2. No gallops. ABDOMEN: Soft, no masses. LABORATORY DATA: White count 15,000, H and H is 7 and 76. Electrolytes are normal. IMPRESSION: Severe chronic obstructive pulmonary disease, tobacco abuse, pneumonia. DISPOSITION: Continue aggressive PT, p.o. antibiotics, steroids. Hopefully, can be discharged home versus rehabilitation in the next several days. He needs an outpatient sleep study.
[2017-12-21] MEDS: Nicotine 21 MG PATCH TD SCH (18:34)
[2017-12-21] MEDS: HumaLOG 300 UNITS/3 ML VIAL SC PRN (18:41)
[2017-12-21 19:45] VITALS: TEMP 98.6
[2017-12-21] MEDS: Amitriptyline HCl 25 MG TAB PO SCH (20:19)
[2017-12-21] MEDS: Atorvastatin Calcium 40 MG TAB PO SCH (20:19)
[2017-12-21] MEDS: Enoxaparin Sodium 40 MG/0.4 ML SYRINGE SC SCH (20:19)
[2017-12-21] MEDS: clonazePAM 0.5 MG TAB PO PRN (21:44)
[2017-12-22] MEDS: HumaLOG 300 UNITS/3 ML VIAL SC PRN (05:33)
--- NOTE | 2017-12-22 07:38 | PDOC.FM ---
- Subjective Subjective: Patient doing well. No significant overnight events. Patient has remained stable and is ready to go home. He denies shortness of breath, chest pain, palpitations, or wheezing. - Objective MAR Reviewed: Yes Vital Signs & Weight: Vital Signs (12 hours) Temp Pulse Resp BP Pulse Ox 12/22/17 07:24 97 12/22/17 07:22 78 20 97 12/22/17 02:15 80 12 12/21/17 22:11 84 16 12/21/17 20:00 93 L 12/21/17 19:44 98.6 F 89 22 H 137/82 93 L Weight Admit Weight 107.5 kg Weight 107.615 kg Most Recent Monitor Data Heart Rate from ECG 84 NIBP 168/91 NIBP BP-Mean 116 Respiration from ECG 25 SpO2 91 I&O: 12/21/17 12/22/17 12/23/17 06:59 06:59 06:59 Intake Total 420 1320 Output Total 2400 1950 Balance -1979 Result Diagrams: 12/21/17 04:19 12/21/17 04:19 EKG Reviewed by me: Yes Radiology Reviewed by me: Yes <Mandie Meza - Last Filed: 12/22/17 13:59> - Objective Vital Signs & Weight: Weight Admit Weight 107.5 kg Weight 107.615 kg Most Recent Monitor Data Heart Rate from ECG 84 NIBP 168/91 NIBP BP-Mean 116 Respiration from ECG 25 SpO2 91 Result Diagrams: 12/21/17 04:19 12/21/17 04:19 <Annie Mason - Last Filed: 12/25/17 09:34> Phys Exam - Physical Examination Constitutional: NAD HEENT: moist MMs Neck: supple Respiratory: wheezing present (worse on left anterior chest) rhonchi in left anterior chest Cardiovascular: RRR Gastrointestinal: soft Musculoskeletal: no edema, pulses present Neurological: non-focal Psychiatric: normal affect, A&O x 3 Skin: no rash, cap refill <2 seconds <Mandie Meza - Last Filed: 12/22/17 13:59> Dx/Plan (1) Acute respiratory failure with hypoxia and hypercapnia Code(s): J96.01 - ACUTE RESPIRATORY FAILURE WITH HYPOXIA; J96.02 - ACUTE RESPIRATORY FAILURE WITH HYPERCAPNIA Status: Acute (2) LEXA (acute kidney injury) Code(s): N17.9 - ACUTE KIDNEY FAILURE, UNSPECIFIED Status: Acute (3) COPD exacerbation Code(s): J44.1 - CHRONIC OBSTRUCTIVE PULMONARY DISEASE W (ACUTE) EXACERBATION Status: Acute (4) Diabetes type 2, controlled Code(s): E11.9 - TYPE 2 DIABETES MELLITUS WITHOUT COMPLICATIONS Status: Chronic Qualifiers: Diabetes mellitus supervisor sample preparation insulin use: without supervisor sample preparation use Diabetes mellitus complication status: with unspecified complications Qualified Code(s) : E11.8 - Type 2 diabetes mellitus with unspecified complications (5) HTN (hypertension) Code(s): I10 - ESSENTIAL (PRIMARY) HYPERTENSION Status: Chronic Qualifiers: Hypertension type: essential hypertension Qualified Code(s): I10 - Essential (primary) hypertension (6) Left lower lobe pneumonia Code(s): J18.1 - LOBAR PNEUMONIA, UNSPECIFIED ORGANISM Status: Acute Qualifiers: Pneumonia type: due to unspecified organism Qualified Code(s): J18.1 - Lobar pneumonia, unspecified organism (7) PAD (peripheral artery disease) Code(s): I73.9 - PERIPHERAL VASCULAR DISEASE, UNSPECIFIED Status: Chronic (8) Sepsis Code(s): A41.9 - SEPSIS, UNSPECIFIED ORGANISM Status: Resolved Qualifiers: Sepsis type: sepsis due to unspecified organism Qualified Code(s): A41.9 - Sepsis, unspecified organism - Plan Plan: 67 y/o gentleman with a PMHx significant for COPD, DMII not on insulin , HTN and HLD who presented intubated/sedated admitted for Acute hypoxic hypercapnic respiratory failure 2/2 Sepsis from CAP. Hospital day: 8 Acute hypoxic hypercapnic respiratory failure - pt requiring 4L NC O2; goal 88-92%. 2/2 COPD and likely BRYAN. Echo had a normal EF, BNP slightly elevated - Levaquin 750 mg PO daily and prednisone 20mg BID for total of 7 days - DONAL Duonebs for COPD - Needs outpatient sleep study Sepsis 2/2 LLL CAP - Levaquin 750mg daily for 5 days - Blood cultures NGTD LEXA, improved - Cr and GFR improved - Adequate UOP >100ml/hr Acute exacerbation of COPD - Continue prednisione 20mg BID for total of 7 days - Continue levaquin 750mg daily for total of 7 days - Continue donal duonebs and alb prn shortness of breath - Continue dulera donal DMII - mild SSI as patient is insulin naive. - ACHS accuchecks and hypoglycemia protocol. HTN - Continue lisinopril/hctz - Hydralazine 20mg IV prn sbp>180 BRYAN on CPAP - Pt denies using CPAP at home but ordered prn here - Pt needs updated sleep study outpatient h/o GERD w/ chronic dysphagia - Continue PPI HLD - atorvastatin 80 mg daily - ascvd risk for 10 years: 50% h/o testicular CA - Aware. Patient is s/p unilateral orchietomy. Significant tobacco use - Patient has a calculated 200 pack year smoking history. - Nitcotine patch ordered and will educate on cessation DVT prophylaxis: lovenox GI prophylaxis: protonix CODE: full Dispo: Plan to d/c home today to continue abx and prednisone for 7 days. <Mandie Meza - Last Filed: 12/22/17 13:59> Attending Addendum - Attending Addendum Date/Time: 12/22/1706 I personally evaluated the patient and discussed the management with Dr. Zaldivar I agree with the History, Examination, Assessment and Plan documented above with any addition or exceptions noted below. 67 yo male with multiple medical conditions admitted on 12/14/17 for respiratory failure HD#8 Doing well. No acute events overnight. Ready for d/c to home. VS reviewed, labs reviewed. 1. Hypercapnic RF: Resolved. 2. Severe COPD: Continue steroids. Continue scheduled breathing treatments. Follow up pulm outpatient. On home NC oxygen. 3. LLL pneumonia: Continue PO antibiotics. Bld cx NTD. Concern for aspiration due to initial presentation. 4. Sepsis: Resolved 5. HTN: Improved. Needs ASA and statin if not already on. 6. Demand ischemia: Needs cards workup outpatient. BB, ASA, statin. Seen by cards inpatient. 7. LEXA: resolved. 8. DM: Continue to adjust meds to prevent hyperglycemia. Maulik <Annie Mason - Last Filed: 12/25/17 09:34>
[2017-12-22] MEDS: Mometasone/Formoterol 120 PUFF INHALER INH SCH (07:43)
[2017-12-22] MEDS ORDERED: Glimepiride 2 MG TAB PO SCH (08:00)
[2017-12-22] MEDS: Carvedilol 25 MG TAB PO SCH (08:29)
[2017-12-22] MEDS: Lisinopril 20 MG TAB PO SCH (08:29)
[2017-12-22] MEDS: Fluticasone Propionate Nasal Spray 16 gm Bottle NASAL SCH (08:29)
[2017-12-22] MEDS: Folic Acid 1 MG TAB PO SCH (08:29)
[2017-12-22] MEDS: predniSONE 20 MG TAB PO SCH (08:30)
[2017-12-22] MEDS: Hydrochlorothiazide 25 MG TAB PO SCH (08:30)
[2017-12-22] MEDS: Aspirin 81 mg Enteric Coated Tablet PO SCH (08:30)
[2017-12-22] MEDS: Sodium Chloride 0.65% Nasal 44 ML BOT EA NARE SCH (08:31)
--- NOTE | 2017-12-22 08:49 | PRG ---
DATE OF SERVICE: 12/22/2017 This morning he is awake, alert, responsive. He said he is walking 20 feet, though he said he looks clean, looks very deconditioned. PHYSICAL EXAMINATION: VITAL SIGNS: Sats are 94 on 4, respiration 19, blood pressure 137/80. CHEST: Decreased breath sounds, no wheezing. CARDIAC: Normal S1-S2. No gallops. ABDOMEN: No masses. IMPRESSION: 1. Chronic obstructive pulmonary disease. 2. Respiratory failure. 3. Left-sided pneumonia, culture negative. 4. Probably sleep apnea. 5. Ongoing tobacco abuse. PLAN: He could probably be discharged. He is going to require low flow O2. Probably needs an outpa tient sleep study. He is to refrain from smoking.
[2017-12-22 12:13] VITALS: BP 131/65
--- NOTE | 2017-12-25 09:35 | DIS-2 ---
DATE OF ADMISSION: 12/14/2017 DATE OF DISCHARGE: 12/22/2017 ADMITTING ATTENDING: Dr. Akhil Sigala. DISCHARGE ATTENDING: Dr. Annie Mason. RESIDENT: Mandie Meza DO PROCEDURES: 1. Chest x-ray on presentation showed some pleural and parenchymal opacity changes in the left mid and lower chest and retrocardiac region with little change, possibly slight worsening when compared to prior CT on 09/26/2017. There is bilateral vascular congestion and cardiomegaly. 2. Brain CT findings that suggest prominent small vessel disease with no evidence for acute hemorrhage. 3. Chest/thorax CTA, extensive consolidation seen in left lower lobe with volume loss. There was a tiny left-sided pleural effusion. Mild calcifications and the coronary artery and thoracic aorta. No evidence of filling defects and pulmonary arteries to suggest pulmonary emboli. Left lower lobe consolidation compatible with pneumonia. 4. Follow up chest x-ray on 12/16/2017 showed cardiomegaly with left effusion and left basilar atelectasis. There is mild vascular congestion. 5. Congestive changes are perused of tissue from prior imaging. 6. Chest x-ray on 12/19/2017 showed no evidence of acute cardiopulmonary disease. 7. Chest x-ray 12/20/2017 showed worsening pulmonary vascular congestion and cardiomegaly, worsening with small left and tiny right pleural effusion, persistent left basilar air opacity. 8. Echocardiogram showed suboptimal study due to poor echocardiographic window. Ejection fraction visually estimated at 55%-60% with normal size of left atrium, left ventricular size normal, mild tricuspid regurgitation. CONSULTS: 1. Pulmonology, Dr. Roque. 2. Dietary. 3. OT. 4. PT noted. 5. Speech evaluation. 6. Wound care. PRIMARY DIAGNOSES: 1. Acute hypoxic hypercapnic respiratory failure. 2. Septic shock secondary to left lower lobe pneumonia. 3. Suspected chronic obstructive pulmonary disease exacerbation. 4. Elevated troponins. 5. Acute kidney injury. 6. Diabetes mellitus type 2. 7. Hypertension. 8. Tobacco abuse. 9. Encephalopathy with dysarthria secondary to hypoxia and hypercapnia. 10. Obstructive sleep apnea on CPAP. DISCHARGE MEDICATIONS: 1. Amitriptyline 25 mg p.o. daily. 2. Aspirin 81 mg p.o. daily. 3. Folic acid 1 mg p.o. daily. 4. Glimepiride 2 mg p.o. q.a.m. 5. Hydralazine 10 mg p.o. daily. 6. Hydrochlorothiazide 12.5 mg p.o. daily. 7. Lisinopril 40 mg p.o. daily. 8. Omeprazole 20 mg p.o. daily. 9. Atorvastatin 80 mg p.o. at bedtime. 10. Carvedilol 25 mg p.o. b.i.d. 11. Fluticasone 2 sprays each nostril daily. 12. Levofloxacin 750 mg p.o. daily for 2 additional days. 13. Mometasone/formoterol 200-5, 125 aerosol 2 puff inhalation b.i.d. 14. Pantoprazole 40 mg p.o. daily. 15. Prednisone 20 mg p.o. b.i.d. for 2 days. HISTORY OF PRESENT ILLNESS AND HOSPITAL COURSE: Mr. Mcdowell is a 67-year-old gentleman with past medical history of poorly controlled COPD, hypertension, diabetes mellitus type 2 who was brought to the emergency department via EMS after being found slumped over in a chair and at home, gasping for air. Per the patient's family, he had been complaining of a productive cough and had been having intermittent episodes of slurred speech for the past 3-4 days. It also reported that patient had been experiencing diarrhea and stool incontinence during this timeframe as well. Patient had returned from a cruise with his father who was not experiencing any similar symptoms. Per the sister, she has spoken with the patient around 12:30 the day of admission and noted his speech was slurred and he was not making sense. She therefore went to [facility] to check on him and found him slumped over in a chair, was assured soaked with saliva and gasping for air. EMS was called and reported that the patient was satting 63% on room air. He was given 200 of ketamine and 100 of rocuronium and immediately intubated in the field. The patient was also given 400 mL of normal saline on the way to the emergency department. The patient was given 2.5 mg IV Versed and 750 mg of IV Levaquin. Patient was admitted to ICU where he stayed on a ventilator with SIMV- VC and a rate of 18 with tidal volume 500 mL, and pressure support of 10, PEEP of 5 and FiO2 of 80%. Based on chest x-ray and patient history, the presumed source of the patient's sepsis was secondary to a community-acquired pneumonia. The director of media was consulted. Patient was treated with Levaquin and cefepime. He was also given 1 liter of lactated Ringer's followed by lactated Ringer's at 150 mL per hour. Due to patient's history of extensive smoking and the lung exam which revealed wheezing, Solu-Medrol was added to patient's regimen along with DuoNebs. The patient extubated on 12/18/2017. He did well post-extubation and was transferred to the floor. Antibiotics, steroids, nebs treatments, supportive care were continued. The patient was needing supplemental oxygen after extubation. He weaned down to about 2 liters of oxygen on 12/21/2017. The patient did recover well and was not requiring oxygen on the day of discharge. Presuming that the patient may need some supplemental oxygen periodically, it was advised that he get oxygen therapy for home. After discussion with the patient, he states that he actually has an oxygen cylinder at home. He just never seems to use it. He also has oxygen at nighttime for his obstructive sleep apnea. 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 The patient was noted to have an acute kidney injury on presentation. After treatment for sepsis, the kidney injury did resolve. Additionally, the patient was noted to have a troponin of 0.188 which is in the entire indeterminate range. Those troponins did trend down. However, due to the elevated nature of the troponin up to 0.330, it was advised that the patient follow up with Cardiology as an outpatient. The patient is from [place]. Thus, it was recommended he follow up with a mold design engineer close to his home town. The elevated troponins were presumed to be secondary to demand ischemia. The patient improved drastically during the course of his hospital stay. He was taken off of the ventilator and titrated down to not needing any oxygen. It was recommended that his goal be between 88%-90% due to his history of COPD and his retention of CO2. Patient was discharged home to complete a course of Levaquin and prednisone for treatment of his community-acquired pneumonia and COPD exacerbation. The patient was advised to return to the hospital or go to Clinic should his symptoms return or worsen. DISPOSITION: Stable. DISCHARGE INSTRUCTIONS: 1. Location: Home. 2. Activity: As tolerated. 3. Diet: Diabetic diet, heart healthy diet. 4. Followup: The patient is to follow up with his primary care physician in [place] within the next 3 days of discharge from the hospital. The patient was in understanding and agreeable with plan. He was also advised to follow with pulmonology and cardiology as stated above. DARIEL
== END 2017-12-22 14:56 | disposition home or self-care (01) | DRG 871 ==
LOC: ERS 14:14 → CCU 16:47 → IMCU/EMU 12-19 09:56 → T4-B 12-20 15:50
PROVIDERS: ADMIT Student in an Organized Health Care Education/Training Program; ATTEND Student in an Organized Health Care Education/Training Program
PROC: 0BH17EZ Insertion of Endotracheal Airway into Trachea, Via Natural or Artificial Opening (ICD-10-PCS; principal; 2017-12-14)
PROC: 5A1945Z Respiratory Ventilation, 24-96 Consecutive Hours (ICD-10-PCS; 2017-12-14)
DX: A41.9 Sepsis, unspecified organism (principal); J96.01 Acute respiratory failure with hypoxia; J18.9 Pneumonia, unspecified organism; R65.21 Severe sepsis with septic shock; J44.0 Chronic obstructive pulmonary disease with (acute) lower respiratory infection; Z68.41 Body mass index [BMI] 40.0-44.9, adult; E87.4 Mixed disorder of acid-base balance; N17.9 Acute kidney failure, unspecified; G93.40 Encephalopathy, unspecified; F17.210 Nicotine dependence, cigarettes, uncomplicated; G47.33 Obstructive sleep apnea (adult) (pediatric); E66.01 Morbid (severe) obesity due to excess calories; E11.9 Type 2 diabetes mellitus without complications; R47.1 Dysarthria and anarthria
CPT/HCPCS: 36415; 36416; 51702; 70450; 71045; 71275; 80048; 80053; 80061; 80202; 80306; 80307; 81003; 81015; 82553; 82570; 82805; 83605; 83880; 83930; 83935; 84300; 84484; 85025; 85379; 87040; 87070; 87205; 87804; 87899; 93005; 93306; 94002; 94003; 94640; 96365; 96368; 96375; C9113; G8978-GP-CN; G8979-GP-CK; G8988-GO-CK; G8989-GO-CI; G8996-GN-CM; G8997-GN-CJ; J0360; J0692; J1650; J1940; J1956; J2060; J2250; J2270; J2704; J2920; J3010; J3370; J3490; J7050; J7120; J7506; J7620

== ENCOUNTER 2018-07-12 21:23 | Inpatient (IN) | payer MEDICARE ==
--- NOTE | 2018-07-12 21:50 | PDOC.FPRHP ---
- History of Present Illness Chief Complaint: Mechanical fall, unable to get up History of Present Illness: Pt is a67 y/o M presenting after a fall. Fell at midnight last night after he lost balance and could not get back up. Son found him at 8am. Denies LOC. Admits to diffuse MSK pain. States it was from falling and he got XR and CT in [facility]. Also denies dizziness, SOB or anything prior to fall, but lost his balance. Denies SOB, chest pain. Sees wound care for open wound on abdomen. PMH: Recent esophagus surgery with complication for bowel perf and residual open wound now. COPD, Borderline diabetic, HTN. ED Course: 2L NS in ER - Allergies/Adverse Reactions Allergies Allergy/AdvReac Type Severity Reaction Status Date / Time Penicillins Allergy Verified 07/13/18 00:52 - Home Medications Medication Instructions Recorded Confirmed Type Aspirin [Ecotrin Low Strength] 81 mg PO DAILY 12/14/17 07/13/18 History Glimepiride 1 mg PO QAM- 12/14/17 07/13/18 History Hydrochlorothiazide 12.5 mg PO DAILY 12/14/17 07/13/18 History Lisinopril 40 mg PO DAILY 12/14/17 07/13/18 History hydrALAZINE [Apresoline] 25 mg PO BID 12/14/17 07/13/18 History Fluticasone Propionate [Flonase 0 gm NASAL DAILY #1 bot 12/22/17 07/13/18 Rx Nasal [place]] Acetaminophen With Codeine 1 tab PO Q6HR PRN 07/13/18 07/13/18 History [Acetaminophen/Codeine #4] Carvedilol [Coreg] 12.5 mg PO BID-WM 07/13/18 07/13/18 History Doxepin HCl 1 cap PO HS 07/13/18 07/13/18 History Pantoprazole [Protonix] 40 mg PO BID 07/13/18 07/13/18 History - History PMHx:as above PSHx: Esophageal surgery with bowel perf and repair, testicle surgery, tonsillectomy, appendectomy and cholecystectomy. FHx:none Social:1pack/day smoker for 52, No ETOH or drug use. - Review of Systems General: denies: fever/chills, weight/appetite/sleep changes, night sweats Eyes: denies: eye pain, vision changes ENT: denies: nasal congestion Respiratory: denies: cough, congestion Cardiovascular: denies: chest pain, palpitation, edema, orthopnea Gastrointestinal: denies: nausea, vomiting, diarrhea Genitourinary: denies: incontinence, dysuria, polyuria Skin: denies: rashes, lesions Musculoskeletal: reports: pain, tenderness, stiffness, swelling, arthritis/ arthralgias Neurological: denies: numbness, syncope, seizure Psychological: denies: anxiety, depression - Vital signs BP: 131/65 HR: 82 RR: 20 Tmax: 98.8 Pox: 94% on ra Wt: 118 kg - Physical Exam Constitutional: NAD, awake, alert and oriented, well developed HEENT: normocephalic and atraumatic, PERRLA, EOMI, conjunctiva clear, MMM, oropharynx clear Neck: supple, FROM, trachea midline, no JVD Chest: no-tender to palpation, no lesions Heart: RRR, normal S1/S2, no murmurs/rubs/gallops, pulses present Lungs: CTAB, no respiratory distress, no wheezing Abdomen: soft, bowel sounds present, no masses/distention, other (TTP diffusely , healing wound in center of abdomen from dehiscence esophageal surgery) Musculoskeletal: normal structure, ROM grossly normal, other (pitting edema in bilateral LE with pigmentation consistent with venous stasis) Neurological: no focal deficit, CN II-XII intact Skin: capillary refill <2 seconds, other (bruises and scabs over extremities consistent with mechanical injury, no abuse concern) Psychiatric: normal mood and affect FMR H&P: Results - Labs Lab results: Na139 K 3.3 Cl 97 Bicarb 30 BUN 24 Cr 2.03 GFR 33 BNP 210 CPK 1805 WBC 15.3 Hgb 15.2 MCV 85.8 Plt 216 - Radiology Interpretation Chest x-ray Status: report reviewed by me (Enlarged heart, elevation of hemidiaphragm, pulmonayr vascular congestion, no consolidations or effusions) Other Status: report reviewed by me (CT chest, abdomen, pelvis No evidence of acute intrathoracic, abdominal, or pelvic pathology.) CT scan - head Status: report reviewed by me (No acute intracranial findings. involutional changes and chronic ischemic white mater changes) FMR H&P: A/P - Problem List (1) Accident due to mechanical fall without injury Current Visit: Yes Status: Acute Code(s): W19.XXXA - UNSPECIFIED FALL, INITIAL ENCOUNTER (2) LEXA (acute kidney injury) Current Visit: No Status: Acute Code(s): N17.9 - ACUTE KIDNEY FAILURE, UNSPECIFIED (3) HTN (hypertension) Current Visit: No Status: Chronic Code(s): I10 - ESSENTIAL (PRIMARY) HYPERTENSION Qualifiers: Hypertension type: essential hypertension Qualified Code(s): I10 - Essential (primary) hypertension - Plan This is a 67 yo male with a pmh of COPD, HTN, GERD, BRYAN Rhabdomyolysis 2/2 fall and 8 hours on the ground -Admit to tele obs -CK of 1805->1625 -Gentle hydration as pt has pulmonary congestion -Repeat CPK in the AM -PT/OT recs and Rehab screen Elevated troponin -Likely demand ischemia -Trended down Leukocytosis -CXR shows vascular congestion -UA negative -Possibly 2/2 healing abdominal wound LEXA on CKD 3 -Cr of 2.03, baseline 1.1 -PO/IV hydration COPD -continue home meds HTN -Continue home meds BRYAN -Continue CPAP Code: full Prophylaxis: SCDs Family: none at bedside Fluids: NS 75ml/hr Diet: HH Disposition: Home in 1-2 days PCP: Dr. Alas FMR H&P: Upper Level - Pertinent history HPI outlined by myself and DR Camarillo above. - Plan Date/Time: 07/12/182144 IWalter, have evaluated this patient and agree with findings/plan as outlined by sales management intern resident. Pertinent changes/additions are listed here. 1. Rhabdomyolisis- CK mildly elevated and downtrending after 2L NS. Will continue to monitor and continue heavy fluids. 2. Mechanical fall- Possible rehab candidate and will have PT/Rehab screen. Normal CT head, pelvis, abdomen. Is bruised in extremities, and will consider XR if pain not improving, although low suspicion after examination. 3. Abdominal Wound- Healing after recent abdominal surgery. Consult wound care; no evidence of infection. Problems below are stable and will continue home medications and avoid nephrotoxic medications. 4. COPD 5. HTN 6. GERD 7. DM2 8. BRYAN on CPAP- resume Addendum - Attending - Attending Attestation Date/Time: 07/12/18 9401 I personally evaluated the patient and discussed the management with Dr. Camarillo /Dougie. I agree with the History, Examination, Assessment and Plan documented above with any addition or exceptions noted below. Patient here after a mechanical fall and inability to get himself upright for 8 hours. He reports weakness and soreness currently. Reports that he "lost his balance". He has scattered bruising, and mild LE edema, but exam otherwise overall normal. Labs show mild CK elevation, Creatinine elevation. He also has mildly increased BNP, but Echo from 11/2017 shows normal EF. Patient will be admitted for mild rhabdo, give mild fluids as CK already downtrending and he has already received 2L. Recheck CK and Creatinine in the AM. Recommend PT consult and consideration of rehab if he truly has deconditioning and disturbance of balance.
[2018-07-13] MEDS ORDERED: HumaLOG 300 UNITS/3 ML VIAL SC PRN (00:10)
[2018-07-13] MEDS ORDERED: Dextrose 5% in Water 1,000 ML IV PRN (00:10)
[2018-07-13] MEDS ORDERED: Dextrose 50% Abboject 50 ML SYRINGE SLOW IVP PRN (00:10)
[2018-07-13] MEDS ORDERED: Acetaminophen 650 MG Suppository PR PRN (00:10)
[2018-07-13] MEDS ORDERED: Acetaminophen 325 MG TAB PO PRN (00:10)
[2018-07-13] MEDS ORDERED: Sodium Chloride 0.9% 1,000 ML IV SCH (00:30)
[2018-07-13] MEDS ORDERED: Doxepin HCl 25 MG CAP PO SCH ×2 (02:15→21:00)
[2018-07-13 05:53] LABS: Anion Gap 12 mmol/L (10-20); BUN (Urea Nitrogen) 23 mg/dL (8.4-25.7); CK (CPK) 1117 U/L (30-200); Calc. Creatinine Clearance 71 mL/min (70-130); Calcium 8.4 mg/dL (7.8-10.44); Carbon Dioxide 28 mmol/L (23-31); Chloride 102 mmol/L (98-107); Estimated GFR-MDRD 40; Glucose 108 mg/dL (80-115); Sodium 139 mmol/L (136-145)
[2018-07-13 06:03] LABS: Potassium 2.8 mmol/L (3.5-5.1)
--- NOTE | 2018-07-13 08:55 | PDOC.FM ---
- Subjective Subjective: Pt reports feeling sleepy this AM but otherwise has no complaints. No concerns at this time. - Objective Vital Signs & Weight: Vital Signs (12 hours) Temp Pulse Resp BP Pulse Ox 07/13/18 08:10 98.5 F 71 18 139/64 92 L 07/13/18 03:46 97.5 F L 69 20 112/57 L 92 L 07/12/18 23:49 96.6 F L 77 18 145/70 H 94 L Weight Weight 120.111 kg I&O: 07/12/18 07/13/18 07/14/18 06:59 06:59 06:59 Intake Total 30 Balance 30 Result Diagrams: 07/13/18 04:36 Phys Exam - Physical Examination Constitutional: NAD HEENT: moist MMs, sclera anicteric Neck: supple Respiratory: no wheezing, clear to auscultation bilateral Cardiovascular: RRR, no significant murmur Gastrointestinal: soft, positive bowel sounds Musculoskeletal: no edema, pulses present Neurological: normal sensation, moves all 4 limbs Psychiatric: normal affect, A&O x 3 Skin: no rash, normal turgor Dx/Plan (1) Rhabdomyolysis Code(s): M62.82 - RHABDOMYOLYSIS Status: Acute (2) COPD (chronic obstructive pulmonary disease) Status: Acute (3) Accident due to mechanical fall without injury Code(s): W19.XXXA - UNSPECIFIED FALL, INITIAL ENCOUNTER Status: Acute (4) LEXA (acute kidney injury) Code(s): N17.9 - ACUTE KIDNEY FAILURE, UNSPECIFIED Status: Acute (5) Diabetes type 2, controlled Code(s): E11.9 - TYPE 2 DIABETES MELLITUS WITHOUT COMPLICATIONS Status: Chronic Qualifiers: Diabetes mellitus long term care administrator insulin use: without custodial use Diabetes mellitus complication status: with unspecified complications Qualified Code(s) : E11.8 - Type 2 diabetes mellitus with unspecified complications (6) HTN (hypertension) Code(s): I10 - ESSENTIAL (PRIMARY) HYPERTENSION Status: Chronic Qualifiers: Hypertension type: essential hypertension Qualified Code(s): I10 - Essential (primary) hypertension - Plan Plan: Rhabdomyolisis A- CK mildly elevated and downtrending after 2L NS P- Continue IVF and PO hydration -will trend CK Mechanical fall Possible rehab candidate. Normal CT head, pelvis, abdomen. Is bruised in extremities, low suspicion of injury. P- will get rehab/pt screen -consider further imaging should pain or dysfunction persist/present Abdominal Wound A- Healing after recent abdominal surgery. no evidence of infection. P- Consult wound care LEXA on CKD 3 A- Cr of 2.03, baseline 1.1 P- PO/IV hydration COPD -home meds HTN -home meds GERD -home meds DM2 -home meds BRYAN on CPAP -resume
[2018-07-13] MEDS ORDERED: Lisinopril 20 MG TAB PO SCH (09:00)
[2018-07-13] MEDS: Potassium Chloride 20 MEQ/100 ML PREMIX BAG IVPB SCH ×3 (09:34→16:06)
[2018-07-13] MEDS: Glimepiride 1 MG TAB PO SCH (09:35)
[2018-07-13] MEDS: hydrALAZINE 25 MG TAB PO SCH ×2 (09:35→21:14)
[2018-07-13] MEDS: Carvedilol 25 MG TAB PO SCH ×2 (09:35→16:06)
[2018-07-13] MEDS: Hydrochlorothiazide 25 MG TAB PO SCH (09:36)
[2018-07-13] MEDS: Aspirin 81 mg Enteric Coated Tablet PO SCH (09:36)
[2018-07-13] MEDS: Acetaminophen/Codeine 30-300mg Tablet PO PRN ×3 (09:40→21:15)
[2018-07-13] MEDS: Ondansetron ODT 4 MG TAB PO PRN ×2 (11:58→21:15)
--- NOTE | 2018-07-13 12:40 | HP ---
I have discussed the case with Dr. Estrada and I agree with his assessment and plan. HISTORY: Mr. Mcdowell is a feisty 67-year-old man, who fell last night at home. He was unable to lift himself up for 8 hours. He was found incidentally by his son this morning and brought to our ER, where he was noted to have a mild case of rhabdo. He was otherwise fine. This morning, he is awake and alert. He is in no distress at all. He is having no chest pain, no shortness of breath, no abdominal pain, and is in fact demanding more food. His CPK has down trended into a safer range, not likely to cause any LEXA at this point. For his own safety; however, I have suggested that he go into a rehab center there in [place] given that he has felt extremely weak following some abdominal surgery some months ago. This may have accounted for the fact that he could not lift himself up this morning and had to lay at home without help for 8 hours. He and his son are both agreeable to this. PLAN: We will involve the community case manager as well. Job ID: [id number]
[2018-07-13] MEDS: Doxepin HCl 25 MG CAP PO SCH (21:14)
[2018-07-13] MEDS: Sulfameth/Trimethoprim DS 800-160mg TAB PO SCH (21:14)
[2018-07-14] MEDS: Acetaminophen/Codeine 30-300mg Tablet PO PRN ×3 (03:18→15:51)
[2018-07-14] MEDS: Ondansetron ODT 4 MG TAB PO PRN ×3 (05:27→16:48)
[2018-07-14 05:31] LABS: Anion Gap 11 mmol/L (10-20); BUN (Urea Nitrogen) 18 mg/dL (8.4-25.7); Calc. Creatinine Clearance 89 mL/min (70-130); Calcium 8.9 mg/dL (7.8-10.44); Carbon Dioxide 28 mmol/L (23-31); Chloride 105 mmol/L (98-107); Estimated GFR-MDRD 52; Glucose 100 mg/dL (80-115); Potassium 3.6 mmol/L (3.5-5.1); Sodium 140 mmol/L (136-145)
[2018-07-14 06:10] LABS: Band 20 % (5-11); Eosinophils 4 % (0-10); Hemoglobin 13.7 g/dL (14.0-18.0); Lymphocytes 15 % (21-51); MDiff Complete? YES; Mean Corpuscular HGB CONC 33.3 g/dL (32.0-36.0); Mean Corpuscular Hemoglobin 29.7 pg (27.0-31.0); Mean Corpuscular Volume 89.1 fL (78.0-98.0); Mean Platelet Volume 7.7 fL (7.4-10.4); Monocytes 9 % (0-10); Neutrophil 52 % (42-75); Platelet Count 194 thou/uL (130-400); Platelet Morphology Comment Appears Adequate; RBC Distribution Width 14.2 % (11.5-14.5); Red Blood Cell (RBC) Count 4.62 mill/uL (4.70-6.10); White Blood Cell (WBC) Count 8.8 thou/uL (4.8-10.8)
--- NOTE | 2018-07-14 07:53 | PDOC.FM ---
- Subjective Subjective: Pt reports poor rest overnight 2/2 reflux, pt has home ppi but reports he overall feels uncomfortable and unhappy to be in hospital. Continues to refuse placement at any location other than [facility]. Pt will consider today if he feels stable on his feet while working with PT/OT and will consider DC to home with HH. - Objective Vital Signs & Weight: Vital Signs (12 hours) Temp Pulse Resp BP BP Pulse Ox 07/14/18 07:30 98.0 F 75 19 137/71 93 L 07/14/18 03:47 97.6 F 72 20 141/70 H 92 L 07/14/18 00:00 78 20 158/70 H 96 07/13/18 21:14 83 168/82 H 07/13/18 20:00 98.1 F 83 18 168/82 H 92 L Weight Weight 117.843 kg I&O: 07/13/18 07/14/18 07/15/18 06:59 06:59 06:59 Intake Total 30 950 Output Total 800 Balance 30 150 Result Diagrams: 07/14/18 05:01 07/14/18 05:01 Phys Exam - Physical Examination Constitutional: NAD HEENT: moist MMs, sclera anicteric Neck: no JVD, supple Respiratory: no wheezing, clear to auscultation bilateral Cardiovascular: RRR, no significant murmur Gastrointestinal: non-tender, positive bowel sounds Musculoskeletal: no edema, pulses present Neurological: moves all 4 limbs Psychiatric: normal affect, A&O x 3 Skin: no rash, normal turgor Dx/Plan (1) Rhabdomyolysis Code(s): M62.82 - RHABDOMYOLYSIS Status: Acute (2) COPD (chronic obstructive pulmonary disease) Status: Acute (3) Accident due to mechanical fall without injury Code(s): W19.XXXA - UNSPECIFIED FALL, INITIAL ENCOUNTER Status: Acute (4) LEXA (acute kidney injury) Code(s): N17.9 - ACUTE KIDNEY FAILURE, UNSPECIFIED Status: Acute (5) Diabetes type 2, controlled Code(s): E11.9 - TYPE 2 DIABETES MELLITUS WITHOUT COMPLICATIONS Status: Chronic Qualifiers: Diabetes mellitus oil heaterman insulin use: without half-way use Diabetes mellitus complication status: with unspecified complications Qualified Code(s) : E11.8 - Type 2 diabetes mellitus with unspecified complications (6) HTN (hypertension) Code(s): I10 - ESSENTIAL (PRIMARY) HYPERTENSION Status: Chronic Qualifiers: Hypertension type: essential hypertension Qualified Code(s): I10 - Essential (primary) hypertension - Plan Plan: Rhabdomyolisis A- CK mildly elevated and downtrended after 2L NS P- Continue PO hydration -will get one more CK Mechanical fall A- Normal CT head, chest, pelvis, abdomen. Is bruised in extremities, low suspicion of injury. Yesterday pt felt he would fall again if alone at home P- f/u PT/OT recs for today Abdominal Wound A- Healing after recent abdominal surgery. no evidence of infection. P- Consult wound care -continue home ABX LEXA on CKD 3 A- Cr of 2.03, baseline 1.1 improved to 1.37 with hydration P- PO hydration COPD -home meds HTN -home meds GERD -home meds DM2 -home meds BRYAN on CPAP -resume DISPO: DC home today or tomorrow with PT/OT vs. placement at [facility] for PT and OT Addendum - Attending - Attending Attestation Date/Time: 07/14/18 1045 I personally evaluated the patient at 0735 and discussed the management with Dr. Benson I agree with the History, Examination, Assessment and Plan documented above with any addition or exceptions noted below. s/p fall with rhabdo- resolved with IV hydration. Most recent ck ~500. PT evaluated and recommended rehab vs SNF. Patient prefers SNF at [facility] Acute on chronic hypoxia- no sign of infection and lungs fairly clear. Will add nebs and IS to bedside and wean O2 to keep sats >90%. LEXA- improved n/v secondary to GERD- will change PPI to IV and continue zofran as needed
[2018-07-14] MEDS: Carvedilol 25 MG TAB PO SCH ×2 (08:11→16:15)
[2018-07-14] MEDS: Glimepiride 1 MG TAB PO SCH (08:12)
[2018-07-14] MEDS: Aspirin 81 mg Enteric Coated Tablet PO SCH (08:12)
[2018-07-14] MEDS: Hydrochlorothiazide 25 MG TAB PO SCH (08:12)
[2018-07-14] MEDS: Sulfameth/Trimethoprim DS 800-160mg TAB PO SCH ×2 (08:13→21:22)
[2018-07-14] MEDS: hydrALAZINE 25 MG TAB PO SCH ×2 (08:13→21:23)
[2018-07-14] MEDS: Calcium Carbonate 500 MG ChewTAB PO PRN (09:39)
[2018-07-14 13:10] VITALS: BMI 31.6
--- NOTE | 2018-07-14 17:10 | RAD ---
2 views chest. HISTORY: Increasing oxygenation demand. 2 views chest demonstrate EKG leads seen over the chest. Pulmonary vascular congestion seen. Areas of patchy density seen in the upper aspect of the right lower lobe as well as in the left lower lobe. Findings compatible with right basilar areas of pneumonia. A small left-sided pleural effusion also seen. IMPRESSION: Areas of patchy airspace opacities concerning for bibasilar pneumonia.
[2018-07-14] MEDS ORDERED: predniSONE 20 MG TAB PO SCH (18:15)
[2018-07-14] MEDS ORDERED: Enoxaparin Sodium 40 MG/0.4 ML SYRINGE SC SCH (18:15)
[2018-07-14] MEDS ORDERED: Azithromycin 500 MG in Sodium Chloride 0.9% 250 ML 250 ML IVPB SCH (18:15)
[2018-07-14] MEDS: cefTRIAXone\\ROCEPHIN 1 GM in Sodium Chloride 0.9% 100 ML IVPB SCH (18:30)
[2018-07-14] MEDS: Doxepin HCl 25 MG CAP PO SCH (21:22)
[2018-07-14] MEDS: Pantoprazole 40 MG VIAL IVP SCH (21:23)
--- NOTE | 2018-07-15 07:33 | PDOC.FM ---
- Subjective Subjective: Pt reports feeling much better after starting ABX, he reports complaince with spirometer and that he got up out of bed with PT yesterday but still felt quite unstable on his feet. No other complaints or concerns at this time. Chills, no fevers, no cp, continued but improved SOB - Objective Vital Signs & Weight: Vital Signs (12 hours) Temp Pulse Resp BP BP Pulse Ox 07/15/18 03:40 97.8 F 72 19 168/86 H 92 L 07/14/18 23:32 76 129/65 07/14/18 21:23 80 181/78 H 07/14/18 20:00 92 L Weight Admit Weight 117.48 kg Weight 116.483 kg I&O: 07/14/18 07/15/18 07/16/18 06:59 06:59 06:59 Intake Total 950 2100 Output Total 800 1050 Balance 150 1050 Result Diagrams: 07/15/18 07:39 07/15/18 07:39 Phys Exam - Physical Examination Constitutional: NAD HEENT: moist MMs, sclera anicteric Neck: no JVD, supple Respiratory: no wheezing mild bilateral inspiratory crackles Cardiovascular: RRR, no significant murmur Gastrointestinal: soft, no distention Musculoskeletal: pulses present Neurological: normal sensation, moves all 4 limbs Psychiatric: normal affect, A&O x 3 Skin: no rash, normal turgor Dx/Plan (1) Rhabdomyolysis Code(s): M62.82 - RHABDOMYOLYSIS Status: Acute (2) COPD (chronic obstructive pulmonary disease) Status: Acute (3) Accident due to mechanical fall without injury Code(s): W19.XXXA - UNSPECIFIED FALL, INITIAL ENCOUNTER Status: Acute (4) LEXA (acute kidney injury) Code(s): N17.9 - ACUTE KIDNEY FAILURE, UNSPECIFIED Status: Acute (5) Diabetes type 2, controlled Code(s): E11.9 - TYPE 2 DIABETES MELLITUS WITHOUT COMPLICATIONS Status: Chronic Qualifiers: Diabetes mellitus prison insulin use: without prison use Diabetes mellitus complication status: with unspecified complications Qualified Code(s) : E11.8 - Type 2 diabetes mellitus with unspecified complications (6) HTN (hypertension) Code(s): I10 - ESSENTIAL (PRIMARY) HYPERTENSION Status: Chronic Qualifiers: Hypertension type: essential hypertension Qualified Code(s): I10 - Essential (primary) hypertension - Plan Plan: CAP A- considering increased O2 needs CXR ordered yesterday which shows concern for bibasilar pneumonia, WBC 8. pt improved after ABX started P- continue rocephin and azithromycin -monitor respiratory status -duonebs prn COPD exacerbation A- increased O2 most likely primarily due to CAP however with pt hx of COPD and some improvement with duonebs will treat for mild copd ex P- prednisone daily -duonebs donal q4hr, q2hr prn - keep O2 sat above 88% Mechanical fall A- Normal CT head, chest, pelvis, abdomen. Is bruised in extremities, low suspicion of injury. P- f/u PT/OT recs Abdominal Wound A- Healing after recent abdominal surgery. no evidence of infection. P- Consult wound care -continue home ABX LEXA on CKD 3 A- Cr of 2.03, baseline 1.1 improved to 1.37 with hydration P- PO hydration Rhabdomyolisis -resolved HTN -home meds GERD -home meds DM2 -home meds BRYAN on CPAP -resume DISPO: to [place] tomorrow if pt shows improvement and has placement Addendum - Attending - Attending Attestation Date/Time: 07/15/18 5417 I personally evaluated the patient and discussed the management with Dr. Benson I agree with the History, Examination, Assessment and Plan documented above with any addition or exceptions noted below. Hypoxic (acute on chronic) resp failure- workup yesterday for increased O2 requirement showed bibasilar pneumonia so treatment for CAP with Azithro and Rocephin started. BNP <200 so doubt chf exac. D dimer elevated but in light of recent fall and without tachycardia, doubt PE at this point. If no improvement with treatment of pneumonia will consider CTA chest. Known COPD- will give nebs and steroids in light of pneumonia. Rhabdo- resolved with IVF LEXA- near baseline Frequent falls- PT recommends SNF so waiting on placement at [facility]
[2018-07-15 07:51] LABS: #Eosinphils 0.1 thou/uL (0.0-0.7); #Lymphocytes 0.8 thou/uL (1.20-3.40); #Monocytes 0.6 thou/uL (0.11-0.59); #Neutrophils 5.4 thou/uL (1.40-6.50); %Basophils 0.2 % (0.0-1.0); %Eosinophils 0.8 % (0.0-10.0); %Lymphocytes 11.8 % (21.0-51.0); %Monocytes 8.4 % (0.0-10.0); %Neutrophils 78.8 % (42.0-75.0); Hemoglobin 14.4 g/dL (14.0-18.0); Mean Corpuscular HGB CONC 33.1 g/dL (32.0-36.0); Mean Corpuscular Hemoglobin 29.4 pg (27.0-31.0); Mean Corpuscular Volume 88.6 fL (78.0-98.0); Mean Platelet Volume 8.2 fL (7.4-10.4); Platelet Count 166 thou/uL (130-400); RBC Distribution Width 13.9 % (11.5-14.5); Red Blood Cell (RBC) Count 4.92 mill/uL (4.70-6.10); White Blood Cell (WBC) Count 6.8 thou/uL (4.8-10.8)
[2018-07-15 08:09] LABS: Anion Gap 16 mmol/L (10-20); BUN (Urea Nitrogen) 17 mg/dL (8.4-25.7); Calc. Creatinine Clearance 88 mL/min (70-130); Calcium 9.2 mg/dL (7.8-10.44); Carbon Dioxide 23 mmol/L (23-31); Chloride 103 mmol/L (98-107); Estimated GFR-MDRD 53; Glucose 197 mg/dL (80-115); Potassium 4.4 mmol/L (3.5-5.1); Sodium 138 mmol/L (136-145)
[2018-07-15] MEDS: hydrALAZINE 25 MG TAB PO SCH ×2 (08:59→20:36)
[2018-07-15] MEDS: Hydrochlorothiazide 25 MG TAB PO SCH (08:59)
[2018-07-15] MEDS: Carvedilol 25 MG TAB PO SCH ×2 (08:59→17:34)
[2018-07-15] MEDS: Sulfameth/Trimethoprim DS 800-160mg TAB PO SCH ×2 (09:00→20:51)
[2018-07-15] MEDS: predniSONE 20 MG TAB PO SCH (09:00)
[2018-07-15] MEDS: Aspirin 81 mg Enteric Coated Tablet PO SCH (09:00)
[2018-07-15] MEDS: Enoxaparin Sodium 40 MG/0.4 ML SYRINGE SC SCH (09:01)
[2018-07-15] MEDS: Pantoprazole 40 MG VIAL IVP SCH ×2 (09:01→21:25)
[2018-07-15] MEDS: Acetaminophen/Codeine 30-300mg Tablet PO PRN ×2 (09:05→20:37)
[2018-07-15] MEDS: Glimepiride 1 MG TAB PO SCH (09:05)
[2018-07-15] MEDS: cefTRIAXone\\ROCEPHIN 1 GM in Sodium Chloride 0.9% 100 ML IVPB SCH (17:35)
[2018-07-15] MEDS: Ondansetron PF 4 MG/2 ML Vial SLOW IVP PRN (17:35)
[2018-07-15] MEDS: Doxepin HCl 25 MG CAP PO SCH (20:36)
[2018-07-15] MEDS ORDERED: Azithromycin 500 MG in Sodium Chloride 0.9% 250 ML 250 ML IVPB SCH (21:00)
[2018-07-15] MEDS: Melatonin 3 MG TAB PO PRN (23:36)
[2018-07-16] MEDS: Acetaminophen/Codeine 30-300mg Tablet PO PRN ×2 (04:22→20:47)
[2018-07-16 05:54] LABS: #Eosinphils 0.1 thou/uL (0.0-0.7); #Lymphocytes 1.7 thou/uL (1.20-3.40); #Monocytes 1.1 thou/uL (0.11-0.59); #Neutrophils 7.9 thou/uL (1.40-6.50); %Basophils 0.2 % (0.0-1.0); %Eosinophils 1.2 % (0.0-10.0); %Lymphocytes 15.5 % (21.0-51.0); %Monocytes 10.2 % (0.0-10.0); %Neutrophils 72.9 % (42.0-75.0); Mean Corpuscular HGB CONC 33.4 g/dL (32.0-36.0); Mean Corpuscular Hemoglobin 29.7 pg (27.0-31.0); Mean Corpuscular Volume 89.1 fL (78.0-98.0); Mean Platelet Volume 7.4 fL (7.4-10.4); Platelet Count 244 thou/uL (130-400); RBC Distribution Width 13.8 % (11.5-14.5); Red Blood Cell (RBC) Count 4.37 mill/uL (4.70-6.10); White Blood Cell (WBC) Count 10.8 thou/uL (4.8-10.8)
--- NOTE | 2018-07-16 07:54 | PDOC.FM ---
- Subjective Subjective: Pt reports feeling improved from yesterday, decreased SOB, decreased muscle aches, decreased reflux. Denies fever/chills, denies cp/palpitations. No other concerns or complaints. Pt states he feels stronger and wants to work with PT today to see if he is strong enough to go home with home health - Objective Vital Signs & Weight: Vital Signs (12 hours) Temp Pulse Resp BP BP Pulse Ox 07/16/18 07:30 97.7 F 70 20 180/80 H 93 L 07/16/18 06:12 79 14 96 07/16/18 04:00 97.6 F 79 20 157/79 H 92 L 07/16/18 02:27 94 L 07/16/18 02:15 81 12 07/15/18 23:38 98.3 F 81 20 150/73 H 93 L 07/15/18 22:13 86 20 94 L 07/15/18 20:36 88 163/73 H 07/15/18 20:00 98.3 F 88 20 163/73 H 93 L Weight Admit Weight 117.48 kg Weight 116.483 kg I&O: 07/15/18 07/16/18 07/17/18 06:59 06:59 06:59 Intake Total 2100 710 Output Total 1050 500 Balance 1050 210 Result Diagrams: 07/16/18 05:23 07/15/18 07:39 Phys Exam - Physical Examination Constitutional: NAD HEENT: moist MMs, sclera anicteric Neck: no JVD, supple Respiratory: no wheezing, clear to auscultation bilateral Cardiovascular: RRR, no significant murmur Gastrointestinal: soft, non-tender Musculoskeletal: no edema, pulses present Neurological: normal sensation, moves all 4 limbs Psychiatric: normal affect, A&O x 3 Skin: no rash, normal turgor Dx/Plan (1) Rhabdomyolysis Code(s): M62.82 - RHABDOMYOLYSIS Status: Acute (2) COPD (chronic obstructive pulmonary disease) Status: Acute (3) Accident due to mechanical fall without injury Code(s): W19.XXXA - UNSPECIFIED FALL, INITIAL ENCOUNTER Status: Acute (4) LEXA (acute kidney injury) Code(s): N17.9 - ACUTE KIDNEY FAILURE, UNSPECIFIED Status: Acute (5) Diabetes type 2, controlled Code(s): E11.9 - TYPE 2 DIABETES MELLITUS WITHOUT COMPLICATIONS Status: Chronic Qualifiers: Diabetes mellitus senior care insulin use: without senior care use Diabetes mellitus complication status: with unspecified complications Qualified Code(s) : E11.8 - Type 2 diabetes mellitus with unspecified complications (6) HTN (hypertension) Code(s): I10 - ESSENTIAL (PRIMARY) HYPERTENSION Status: Chronic Qualifiers: Hypertension type: essential hypertension Qualified Code(s): I10 - Essential (primary) hypertension - Plan Plan: CAP A- considering increased O2 needs CXR ordered yesterday which shows concern for bibasilar pneumonia, though procal is negative and WBC 8. pt improved after ABX started P- continue rocephin and azithromycin -monitor respiratory status -duonebs prn COPD exacerbation A- increased O2 most likely primarily due to CAP however with pt hx of COPD and some improvement with duonebs will treat for mild copd ex P- prednisone daily -duonebs donal q4hr, q2hr prn -keep O2 sat above 88% Mechanical fall A- Normal CT head, chest, pelvis, abdomen. Is bruised in extremities, low suspicion of injury. P- f/u PT/OT recs Abdominal Wound A- Healing after recent abdominal surgery. no evidence of infection. P- Consult wound care -continue home ABX LEXA on CKD 3 A- Cr of 2.03, baseline 1.1 improved to 1.37->1.34 with hydration P- PO hydration Rhabdomyolisis -resolved HTN -home meds GERD -home meds DM2 -home meds BRYAN on CPAP -resume DISPO: to [facility] pt shows improvement and has placement vs. home with HH Addendum - Attending - Attending Attestation Date/Time: 07/16/18 1040 I personally evaluated the patient and discussed the management with Dr. Benson. I agree with the History, Examination, Assessment and Plan documented above with any addition or exceptions noted below. Patient here with mechanical fall and rhabdo that is now resolved. He stayed over the weekend due to placement as he felt unsafe to go home. He feels better today and HH has been set up for him. He is to ambulate today with PT and if feels well he can consider being discharged to home. BP running high but patient reports that we do not have him on his proper Coreg regimen, will change that. Has O2 at home that he will continue on DC. Procal and WBC reassuring that he is not having any major bacterial pneumonia or infection.
[2018-07-16] MEDS: Hydrochlorothiazide 25 MG TAB PO SCH (08:17)
[2018-07-16] MEDS: Carvedilol 25 MG TAB PO SCH ×2 (08:18→16:14)
[2018-07-16] MEDS: Aspirin 81 mg Enteric Coated Tablet PO SCH (08:18)
[2018-07-16] MEDS: predniSONE 20 MG TAB PO SCH (08:19)
[2018-07-16] MEDS: Glimepiride 1 MG TAB PO SCH (08:19)
[2018-07-16] MEDS: Sulfameth/Trimethoprim DS 800-160mg TAB PO SCH ×2 (08:19→20:47)
[2018-07-16] MEDS: hydrALAZINE 25 MG TAB PO SCH ×2 (08:19→20:45)
[2018-07-16] MEDS: Pantoprazole 40 MG VIAL IVP SCH (08:19)
[2018-07-16] MEDS: Enoxaparin Sodium 40 MG/0.4 ML SYRINGE SC SCH (08:21)
[2018-07-16] MEDS: Calcium Carbonate 500 MG ChewTAB PO PRN (15:26)
[2018-07-16] MEDS: Ondansetron PF 4 MG/2 ML Vial SLOW IVP PRN (15:29)
[2018-07-16] MEDS: HumaLOG 300 UNITS/3 ML VIAL SC PRN (17:13)
[2018-07-16] MEDS: Doxepin HCl 25 MG CAP PO SCH (20:45)
[2018-07-16] MEDS: Melatonin 3 MG TAB PO PRN (20:48)
[2018-07-16] MEDS ORDERED: Hydrochlorothiazide 25 MG TAB PO SCH (23:00)
--- NOTE | 2018-07-17 08:18 | PDOC.FM ---
Addendum entered and electronically signed by José Miguel Benson MD 07/17/18 08:23 : A/P: HTN A- pt remains to have intermittent SBP > 180 despite putting pt on correct home dose of coreg yesterday P- will increase HCTZ to 25mg daily Original Note: - Subjective Subjective: Pt reports feeling the same as yesterday. Today he denies SOB all together. Reports he wants to go home but is unsure of his strength. Complains of continued intermittent reflux, no other complaints or concerns - Objective Vital Signs & Weight: Vital Signs (12 hours) Temp Pulse Resp BP BP Pulse Ox 07/17/18 08:00 97.8 F 79 18 199/96 H 95 07/17/18 06:12 72 18 95 07/17/18 04:00 97.5 F L 62 20 170/88 H 93 L 07/17/18 02:07 69 18 93 L 07/16/18 23:18 97.7 F 69 18 151/78 H 93 L 07/16/18 21:43 80 18 95 07/16/18 20:45 84 170/85 H Weight Admit Weight 117.48 kg Weight 116.483 kg I&O: 07/16/18 07/17/18 07/18/18 06:59 06:59 06:59 Intake Total 710 1700 Output Total 500 1525 Balance 210 175 Result Diagrams: 07/16/18 05:23 07/15/18 07:39 Phys Exam - Physical Examination Constitutional: NAD HEENT: PERRLA, moist MMs Neck: supple, full ROM Respiratory: no wheezing, clear to auscultation bilateral Cardiovascular: RRR, no significant murmur Gastrointestinal: soft, non-tender Musculoskeletal: pulses present Neurological: normal sensation, moves all 4 limbs Psychiatric: normal affect, A&O x 3 Skin: no rash, normal turgor Dx/Plan (1) Rhabdomyolysis Code(s): M62.82 - RHABDOMYOLYSIS Status: Acute (2) COPD (chronic obstructive pulmonary disease) Status: Acute (3) Accident due to mechanical fall without injury Code(s): W19.XXXA - UNSPECIFIED FALL, INITIAL ENCOUNTER Status: Acute (4) LEXA (acute kidney injury) Code(s): N17.9 - ACUTE KIDNEY FAILURE, UNSPECIFIED Status: Acute (5) Diabetes type 2, controlled Code(s): E11.9 - TYPE 2 DIABETES MELLITUS WITHOUT COMPLICATIONS Status: Chronic Qualifiers: Diabetes mellitus skilled nursing insulin use: without skilled nursing use Diabetes mellitus complication status: with unspecified complications Qualified Code(s) : E11.8 - Type 2 diabetes mellitus with unspecified complications (6) HTN (hypertension) Code(s): I10 - ESSENTIAL (PRIMARY) HYPERTENSION Status: Chronic Qualifiers: Hypertension type: essential hypertension Qualified Code(s): I10 - Essential (primary) hypertension - Plan Plan: Deconditioning A- Pt continues to work with PT and OT, he would benefit from inpt pt/ot however he feels he may be strong enough to go home w/ HH P- will discuss once again with pt on rounds COPD exacerbation A- increased O2 most likely primarily due to CAP however with pt hx of COPD and some improvement with duonebs will treat for mild copd ex P- prednisone daily -duonebs prn -keep O2 sat above 88% -Pt has home O2 and is stable for DC Mechanical fall A- Normal CT head, chest, pelvis, abdomen. Is bruised in extremities, low suspicion of injury. P- f/u PT/OT recs Abdominal Wound A- Healing after recent abdominal surgery. no evidence of infection. P- Consult wound care -continue home ABX LEXA on CKD 3 A- Cr of 2.03, baseline 1.1 improved to 1.37->1.34 with hydration P- PO hydration CAP -ABX DCd on 07/16 considering negative procal and benign exam, increased O2 requirement likely 2/2 atelectasis. Rhabdomyolisis -resolved HTN -home meds GERD -home meds DM2 -home meds BRYAN on CPAP -resume DISPO: to [facility] pt shows improvement and has placement vs. home with Addendum - Attending - Attending Attestation Date/Time: 07/17/18 6085 I personally evaluated the patient and discussed the management with Dr. Benson. I agree with the History, Examination, Assessment and Plan documented above with any addition or exceptions noted below. Patient very unhappy with his care this morning. He denies complaints but reports unhappiness that his blood pressure is so elevated despite him being on home doses of medication. He reports to us that on his home regimen he is normally 130s systolic, but his home regimen is providing inadequate control at this time. Yesterday, patient indicated that even if we changed his medications he would resume "what I'm taking at home" upon discharge. Patient is unhappy to still be in the hospital, wishes to leave to "go to the bank". We have indicated to him that he is overal medically stable for discharge, we are just worried about his gait is stability. He feels like he is safe to go home, but then in mid conversation will contradict that saying he does not want to go home because he is not sure he is stable. However, when we discuss with him the plan (that he initiated) to go to a SNF, he cannot decide if that is what he wants to do or if he wants to go home. Patient was becoming very unpleasant in conversation and then took a phone call in the middle of us working to get on the same page as him. After he indicated an unwillingness to get off the phone, we left his room to follow up this conversation when he is more calm.
[2018-07-17] MEDS: Acetaminophen/Codeine 30-300mg Tablet PO PRN ×2 (08:39→20:14)
[2018-07-17] MEDS: Hydrochlorothiazide 25 MG TAB PO SCH (08:42)
[2018-07-17] MEDS: Aspirin 81 mg Enteric Coated Tablet PO SCH (08:42)
[2018-07-17] MEDS: Carvedilol 25 MG TAB PO SCH ×2 (08:43→14:57)
[2018-07-17] MEDS: Glimepiride 1 MG TAB PO SCH (08:43)
[2018-07-17] MEDS: predniSONE 20 MG TAB PO SCH (08:43)
[2018-07-17] MEDS: hydrALAZINE 25 MG TAB PO SCH ×2 (08:43→20:13)
[2018-07-17] MEDS: Sulfameth/Trimethoprim DS 800-160mg TAB PO SCH ×2 (08:44→20:13)
[2018-07-17] MEDS: Enoxaparin Sodium 40 MG/0.4 ML SYRINGE SC SCH (09:27)
[2018-07-17] MEDS: Labetalol HCl 100 MG/20 ML VIAL SLOW IVP PRN ×2 (10:38→16:58)
[2018-07-17] MEDS ORDERED: Polyethylene Glycol 3350 17 GM Packet PO PRN (13:19)
[2018-07-17] MEDS: HumaLOG 300 UNITS/3 ML VIAL SC PRN (17:03)
[2018-07-17] MEDS: Melatonin 3 MG TAB PO PRN (20:15)
[2018-07-17] MEDS: Doxepin HCl 25 MG CAP PO SCH (20:17)
[2018-07-18] MEDS: Acetaminophen/Codeine 30-300mg Tablet PO PRN (03:22)
[2018-07-18] MEDS ORDERED: Senokot 8.6 MG TAB PO PRN (06:56)
[2018-07-18 07:33] VITALS: BP 197/99; TEMP 97.8
[2018-07-18] MEDS: Hydrochlorothiazide 25 MG TAB PO SCH (08:12)
[2018-07-18] MEDS: Glimepiride 1 MG TAB PO SCH (08:13)
[2018-07-18] MEDS: Aspirin 81 mg Enteric Coated Tablet PO SCH (08:13)
[2018-07-18] MEDS: predniSONE 20 MG TAB PO SCH (08:14)
[2018-07-18] MEDS: hydrALAZINE 25 MG TAB PO SCH (08:14)
[2018-07-18] MEDS: Sulfameth/Trimethoprim DS 800-160mg TAB PO SCH (08:14)
[2018-07-18] MEDS: Carvedilol 25 MG TAB PO SCH (08:15)
--- NOTE | 2018-07-18 08:49 | PDOC.FM ---
- Subjective Subjective: Pt concerned that he has not had a BM since admission, denies nausea/vomiting, does not report abdominal pain. no other concerns, no other complaints - Objective Vital Signs & Weight: Vital Signs (12 hours) Temp Pulse Resp BP Pulse Ox 07/18/18 08:14 66 07/18/18 07:32 97.8 F 66 20 197/99 H 91 L 07/18/18 03:31 97.6 F 62 18 170/85 H 94 L 07/18/18 01:00 97.7 F 65 18 160/80 H 94 L Weight Admit Weight 117.48 kg Weight 116.483 kg I&O: 07/17/18 07/18/18 07/19/18 06:59 06:59 06:59 Intake Total 1700 2250 Output Total 1525 2600 Balance 175 -350 Result Diagrams: 07/16/18 05:23 07/15/18 07:39 Phys Exam - Physical Examination Constitutional: NAD HEENT: moist MMs, sclera anicteric Neck: supple, full ROM Respiratory: no rales, clear to auscultation bilateral Cardiovascular: RRR, no significant murmur Gastrointestinal: soft, non-tender Musculoskeletal: no edema, pulses present Neurological: normal sensation, moves all 4 limbs Lymphatic: no nodes Psychiatric: normal affect Skin: no rash, normal turgor Dx/Plan (1) Rhabdomyolysis Code(s): M62.82 - RHABDOMYOLYSIS Status: Acute (2) COPD (chronic obstructive pulmonary disease) Status: Acute (3) Accident due to mechanical fall without injury Code(s): W19.XXXA - UNSPECIFIED FALL, INITIAL ENCOUNTER Status: Acute (4) LEXA (acute kidney injury) Code(s): N17.9 - ACUTE KIDNEY FAILURE, UNSPECIFIED Status: Acute (5) Diabetes type 2, controlled Code(s): E11.9 - TYPE 2 DIABETES MELLITUS WITHOUT COMPLICATIONS Status: Chronic Qualifiers: Diabetes mellitus fpc insulin use: without park interpretive specialist use Diabetes mellitus complication status: with unspecified complications Qualified Code(s) : E11.8 - Type 2 diabetes mellitus with unspecified complications (6) HTN (hypertension) Code(s): I10 - ESSENTIAL (PRIMARY) HYPERTENSION Status: Chronic Qualifiers: Hypertension type: essential hypertension Qualified Code(s): I10 - Essential (primary) hypertension - Plan Plan: Constipation -miralax, sennacot, suppository Deconditioning - continue PT and OT at [facility] COPD exacerbation A- increased O2 most likely primarily due to CAP however with pt hx of COPD and some improvement with duonebs will treat for mild copd ex P- prednisone completed -duonebs prn -keep O2 sat above 88% -Pt has home O2 and is stable for DC Mechanical fall A- Normal CT head, chest, pelvis, abdomen. Is bruised in extremities, low suspicion of injury. P- f/u PT/OT recs Abdominal Wound A- Healing after recent abdominal surgery. no evidence of infection. P- Consult wound care -continue home ABX LEXA on CKD 3 A- Cr of 2.03, baseline 1.1 improved to 1.37->1.34 with hydration P- PO hydration CAP -ABX DCd on 07/16 considering negative procal and benign exam, increased O2 requirement likely 2/2 atelectasis. Rhabdomyolisis -resolved HTN -home meds GERD -home meds DM2 -home meds BRYAN on CPAP -resume DISPO: to [facility] pt shows improvement and has placement Addendum - Attending - Attending Attestation Date/Time: 07/18/18 1102 I personally evaluated the patient and discussed the management with Dr. Benson. I agree with the History, Examination, Assessment and Plan documented above with any addition or exceptions noted below. Patient is doing improved. He has had escalation of BP meds and anticipate improved control. He has been accepted for placement and will be discharged to SNF later today. Laxative for BM per his request.
[2018-07-18] MEDS: Enoxaparin Sodium 40 MG/0.4 ML SYRINGE SC SCH (08:50)
[2018-07-18] MEDS ORDERED: Lisinopril 20 MG TAB PO SCH (09:00)
[2018-07-18] MEDS ORDERED: Bisacodyl 10 MG SUPP PR SCH (09:00)
[2018-07-18] MEDS ORDERED: Polyethylene Glycol 3350 17 GM Packet PO SCH (09:45)
--- NOTE | 2018-07-19 00:08 | DIS ---
DATE OF ADMISSION: 07/13/2018 DATE OF DISCHARGE: 07/18/2018 RESIDENT: José Miguel Benson MD ADMITTING ATTENDING: Rigoberto Delatorre MD DISCHARGE ATTENDING: Rigoberto Delatorre MD CONSULTS: 1. Physical Therapy. 2. Occupational Therapy. 3. Wound Care. 4. Spiritual Care. PROCEDURES: 1. On 07/14/2018, chest x-ray, impression, areas of patchy airspace opacities concerning for bibasilar pneumonia. 2. On 07/12/2018, brain CT, impression, no acute intracranial findings, involutional changes, chronic ischemic white matter changes. 3. On 07/12/2018, chest, abdomen, and pelvis CT, impression, no evidence of acute intrathoracic abdominal or pelvic pathology seen. Soft tissue material, possible debris within the esophagus, correlate with direct visualization. 4. On 07/12/2018, chest x-ray, impression, the heart is enlarged. There is torturous. There is continued elevation of the left hemidiaphragm. There is pulmonary vascular congestion. No lobar consolidation, pneumothoraces, or large effusions are identified. DISCHARGE MEDICATIONS: 1. Aspirin 81 mg p.o. daily. 2. Lisinopril 40 mg p.o. daily. 3. Glimepiride 1 mg p.o. q.a.m. 4. Hydralazine 25 mg p.o. b.i.d. 5. Flonase 1 spray nasal daily. 6. Doxepin one capsule p.o. at bedtime. 7. Tylenol No. 4 one tablet p.o. q.6 hours p.r.n., resumed at home. 8. Bactrim 1 tablet p.o. b.i.d. for chronic wound. 9. Carvedilol 12.5 mg p.o. b.i.d. 10. Protonix 40 mg p.o. b.i.d. 11. Dulcolax 10 mg per rectum p.r.n. 12. Tums 1000 mg p.o. q.4 hours p.r.n. 13. Hydrochlorothiazide 25 mg p.o. daily. 14. DuoNeb 3 mL nebulization q.2 hours p.r.n. 15. Melatonin 3 mg p.o. at bedtime. 16. Zofran 4 mg p.o. q.6 hours p.r.n. 17. Senokot one tablet p.o. at bedtime p.r.n. DISCONTINUED MEDICATIONS: Hydrochlorothiazide 12.5 mg p.o. daily. HISTORY OF PRESENT ILLNESS/HOSPITAL COURSE: This is a 67-year-old male with history of hypertension, who presented from home after a mechanical fall. The patient was found down by his son after 8 hours, and on presentation found to have mild rhabdomyolysis with CK had 1800, with IV fluids this quickly decreased to less concerning ranges trending below 1000. Additionally, the patient's musculoskeletal aches and pains resolved. It was found out that patient lives at home and had deconditioning secondary to inactive lifestyle and was not stable on his feet. PT and OT were consulted, who recommended inpatient rehab. Plans were made for placement. However, the patient refused to go to any location other than [place], although the patient was upset to not go home, the patient espoused the point that he would not be safe and would be unstable and likely fall again at home, several times during hospital stay. Additionally, hospitalization was complicated for difficulty with controlling blood pressure. Hydrochlorothiazide was increased from 12.5 to 25 mg p.o. daily. Additionally, hospitalization was significant for constipation, though the patient was not having abdominal discomfort. He had no bowel movements during hospitalization, and so the patient was given 51 g dose of MiraLAX in addition to suppository on the day of discharge. DISPOSITION: Stable. DISCHARGE INSTRUCTIONS: 1. Location: [facility]. 2. Activity: As tolerated with fall precautions. PT and OT recommended. 3. Diet: Healthy heart with low-sodium. 4. Followup: Follow up with primary care provider in 1 week. Job ID: [id number]
== END 2018-07-18 11:07 | DRG 682 ==
LOC: ERS 21:23 → 2NO 23:49 → OBSVTOIN 07-13 12:07 → T4-A 07-15 11:35
PROVIDERS: ADMIT Student in an Organized Health Care Education/Training Program; ATTEND Student in an Organized Health Care Education/Training Program
DX: N17.9 Acute kidney failure, unspecified (principal); J96.21 Acute and chronic respiratory failure with hypoxia; J18.9 Pneumonia, unspecified organism; J44.0 Chronic obstructive pulmonary disease with (acute) lower respiratory infection; J44.1 Chronic obstructive pulmonary disease with (acute) exacerbation; I24.8 Other forms of acute ischemic heart disease; T79.6XXA Traumatic ischemia of muscle, initial encounter; F17.210 Nicotine dependence, cigarettes, uncomplicated; K21.9 Gastro-esophageal reflux disease without esophagitis; S31.109A Unspecified open wound of abdominal wall, unspecified quadrant without penetration into peritoneal cavity, initial encounter; G47.33 Obstructive sleep apnea (adult) (pediatric); K59.00 Constipation, unspecified; I12.9 Hypertensive chronic kidney disease with stage 1 through stage 4 chronic kidney disease, or unspecified chronic kidney disease; E11.22 Type 2 diabetes mellitus with diabetic chronic kidney disease; N18.3 Chronic kidney disease, stage 3 (moderate); W19.XXXA Unspecified fall, initial encounter; Z88.0 Allergy status to penicillin; Z79.82 Long term (current) use of aspirin; Z79.84 Long term (current) use of oral hypoglycemic drugs; Z79.899 Other long term (current) drug therapy; Z79.51 Long term (current) use of inhaled steroids; Z90.49 Acquired absence of other specified parts of digestive tract
CPT/HCPCS: 36415; 36416; 71046; 80048; 82550; 83605; 83880; 84145; 85025; 85379; 94640; 96360; 96361; C9113; J0456; J0696; J1650; J2405; J3480; J3490; J7050; J7512; J7620; Q0162